=== PATIENT | male | born 1950 | race Caucasian/White ===

== ENCOUNTER → 2018-08-12 | Outpatient (CLI) | payer MEDICARE, OTHER ==
--- NOTE | 2018-08-12 12:31 | RADIOLOGY REPORT (SQ) ---
EXAM DESCRIPTION: SACROILIAC JOINTS COMPLETED DATE/TIME: 08/12/2018 11:25 am REASON FOR STUDY: MULTIFACOTIRAL LOW BACK PAIN M67.431 GANGLION, RIGHT WRIST COMPARISON: Lumbar spine films same date NUMBER OF VIEWS: Three views. TECHNIQUE: AP and oblique views of the sacroiliac joints. LIMITATIONS: None. FINDINGS: MINERALIZATION: Normal. BONES: No acute fracture or dislocation. No worrisome bone lesions. No significant osteophytes. JOINTS: The sacroiliac joints are patent. No unusual widening, sclerosis, or fusion. SOFT TISSUES: No soft tissue swelling. No radio-opaque foreign body. OTHER: Advanced degenerative disc change lower lumbar spine at L3-4, L4-5, and L5-S1. IMPRESSION: SI joints unremarkable. Degenerative disc changes lower lumbar spine TECHNICAL DOCUMENTATION: JOB ID: [id number] [employer]- All Rights Reserved Reading location - IP/workstation name: [email or web address]
--- NOTE | 2018-08-12 14:07 | RADIOLOGY REPORT (SQ) ---
EXAM DESCRIPTION: L SPINE WHOLE COMPLETED DATE/TIME: 08/12/2018 11:25 am REASON FOR STUDY: MULTIFACOTIRAL LOW BACK PAIN M67.431 GANGLION, RIGHT WRIST COMPARISON: None. NUMBER OF VIEWS: Five views including obliques. TECHNIQUE: AP, lateral, oblique, and sacral radiographic images acquired of the lumbar spine. LIMITATIONS: None. FINDINGS: MINERALIZATION: Normal. SEGMENTATION: Normal. No transitional anatomy. ALIGNMENT: Degenerative convex leftward lumbar curvature VERTEBRAE: Maintained height. No fracture or worrisome bone lesion. DISCS: High-grade disc space loss of height with vertebral body endplate sclerosis and bony spurring. Disc space vacuum phenomenon from L1-2 through L5-S1 POSTERIOR ELEMENTS: Pedicles and facets are intact. No pars defect or posterior arch defects. Diffu se facet arthropathy HARDWARE: None in the spine. PARASPINAL SOFT TISSUES: Normal. PELVIS: Not included in the field of view OTHER: No other significant finding. IMPRESSION: Diffuse degenerative changes lumbar spine TECHNICAL DOCUMENTATION: JOB ID: [id number] [employer]- All Rights Reserved Reading location - IP/workstation name: [email or web address]
--- NOTE | 2018-08-12 15:12 | RADIOLOGY REPORT (SQ) ---
EXAM DESCRIPTION: U/S EXTREMITY NONVASCULAR LTD COMPLETED DATE/TIME: 08/12/2018 11:07 am REASON FOR STUDY: GANGLION CYST OF R WRIST M67.431 GANGLION, RIGHT WRIST COMPARISON: None. TECHNIQUE: Sonographic imaging is performed on the right wrist. LIMITATIONS: None. FINDINGS: Sonographic images show a complex cyst on the right wrist measuring 10 mm. There is no si gnificant increased vascularity. IMPRESSION: A ganglion cyst on the right wrist. TECHNICAL DOCUMENTATION: JOB ID: [id number] [employer]- All Rights Reserved Reading location - IP/workstation name: [email or web address]
== END ==
LOC: RAD 09:54
PROVIDERS: ATTEND Family Medicine
DX: M67.431 Ganglion, right wrist (principal); M54.5 Low back pain; M47.896 Other spondylosis, lumbar region
CPT/HCPCS: 72110; 72200; 76882

== ENCOUNTER → 2018-08-27 | Outpatient (CLI) | payer MEDICARE, OTHER ==
[2018-08-27 12:43] LABS: ABSOLUTE EOSINOPHILS # (AUTO) 0.1 10^3/uL (0.0-0.6); ABSOLUTE LYMPHOCYTES (AUTO) 1.2 10^3/uL (0.5-4.7); ABSOLUTE MONOCYTES (AUTO) 0.5 10^3/uL (0.1-1.4); ABSOLUTE NEUT (AUTO) 3.6 10^3/uL (1.7-8.2); BASOPHILS % (AUTO) 0.4 % (0-2); EOSINOPHILS % (AUTO) 2.4 % (0-6); HEMATOCRIT 44.9 % (37.9-51.0); HEMOGLOBIN 15.1 g/dL (13.5-17.0); LYMPHOCYTES % (AUTO) 21.3 % (13-45); MEAN CORPUSCULAR HEMOGLOBIN 31.2 pg (27.0-33.4); MEAN CORPUSCULAR HGB CONC 33.7 g/dL (32.0-36.0); MEAN CORPUSCULAR VOLUME 93 fl (80-97); MONOCYTES % (AUTO) 9.4 % (3-13); PLATELET COUNT 140 10^3/uL (150-450); RED BLOOD COUNT 4.85 10^6/uL (4.35-5.55); SEGMENTED NEUTROPHILS % (AUTO) 66.5 % (42-78); TOTAL CELLS COUNTED % (AUTO) 100 %; WHITE BLOOD COUNT 5.5 10^3/uL (4.0-10.5)
[2018-08-27 13:08] LABS: ALANINE AMINOTRANSFERASE 28 U/L (21-72); ALBUMIN 3.6 g/dL (3.5-5.0); ALKALINE PHOSPHATASE 72 U/L (38-126); ANION GAP 6 (5-19); ASPARTATE AMINO TRANSFERASE 35 U/L (17-59); BILIRUBIN,DIRECT 0.4 mg/dL (0.0-0.4); BILIRUBIN,TOTAL 0.8 mg/dL (0.2-1.3); BLOOD UREA NITROGEN 14 mg/dL (7-20); CALCIUM 8.8 mg/dL (8.4-10.2); CARBON DIOXIDE 33 mmol/L (22-30); CHLORIDE 102 mmol/L (98-107); CHOLESTEROL 133.85 mg/dL (0-200); GLUCOSE 87 mg/dL (75-110); POTASSIUM 5.2 mmol/L (3.6-5.0); SODIUM 140.8 mmol/L (137-145); TOTAL PROTEIN 6.5 g/dL (6.3-8.2); TRIGLYCERIDES 80 mg/dL (<150)
[2018-08-27 13:20] LABS: DIRECT LDL 85 mg/dL (<100)
== END ==
LOC: OD 11:19
PROVIDERS: ATTEND Family Medicine Geriatric Medicine
DX: E78.5 Hyperlipidemia, unspecified (principal); J44.9 Chronic obstructive pulmonary disease, unspecified; D50.9 Iron deficiency anemia, unspecified; Z79.899 Other long term (current) drug therapy
CPT/HCPCS: 36415; 80053; 80061; 84443; 85025

== ENCOUNTER → 2018-09-02 | Outpatient (CLI) | payer MEDICARE, OTHER ==
[2018-09-02 14:32] LABS: ABSOLUTE EOSINOPHILS # (AUTO) 0.2 10^3/uL (0.0-0.6); ABSOLUTE LYMPHOCYTES (AUTO) 1.6 10^3/uL (0.5-4.7); ABSOLUTE MONOCYTES (AUTO) 0.6 10^3/uL (0.1-1.4); ABSOLUTE NEUT (AUTO) 4.2 10^3/uL (1.7-8.2); BASOPHILS % (AUTO) 0.5 % (0-2); EOSINOPHILS % (AUTO) 2.7 % (0-6); HEMATOCRIT 42.4 % (37.9-51.0); HEMOGLOBIN 14.5 g/dL (13.5-17.0); LYMPHOCYTES % (AUTO) 24.4 % (13-45); MEAN CORPUSCULAR HEMOGLOBIN 31.5 pg (27.0-33.4); MEAN CORPUSCULAR HGB CONC 34.1 g/dL (32.0-36.0); MEAN CORPUSCULAR VOLUME 92 fl (80-97); MONOCYTES % (AUTO) 9.3 % (3-13); PLATELET COUNT 157 10^3/uL (150-450); RED BLOOD COUNT 4.59 10^6/uL (4.35-5.55); RED CELL DISTRIBUTION WIDTH 13.5 % (11.5-14.0); SEGMENTED NEUTROPHILS % (AUTO) 63.1 % (42-78); TOTAL CELLS COUNTED % (AUTO) 100 %; WHITE BLOOD COUNT 6.7 10^3/uL (4.0-10.5)
== END ==
LOC: OD 13:10
PROVIDERS: ATTEND Family Medicine Geriatric Medicine
DX: E78.5 Hyperlipidemia, unspecified (principal); D69.6 Thrombocytopenia, unspecified; E87.5 Hyperkalemia; R79.89 Other specified abnormal findings of blood chemistry
CPT/HCPCS: 36415; 84132; 84443; 85025

== ENCOUNTER → 2018-11-12 | Outpatient (CLI) | payer MEDICARE, OTHER ==
--- NOTE | 2018-11-12 15:45 | RADIOLOGY REPORT (SQ) ---
EXAM DESCRIPTION: U/S NON-OB PELVIS LTD W/O DOP COMPLETED DATE/TIME: 11/12/2018 3:36 pm REASON FOR STUDY: RIGHT LOWER QUADRANT PAIN, RIGHT GROIN PAIN R10.31 RIGHT LOWER QUADRANT PAIN COMPARISON: None. TECHNIQUE: Dynamic and static grayscale images acquired of the right hand left inguinal region trans abdominal approach and recorded on PACS. Additional selected color Doppler and spectral images record ed. LIMITATIONS: None. FINDINGS: Ultrasound of the right hand left inguinal region, including grayscale and cine loop image s saved to pac's. No right or left inguinal hernia is identified. No adenopathy. No inguinal ash s. IMPRESSION: No right or left inguinal hernia is identified at ultrasound TECHNICAL DOCUMENTATION: JOB ID: [id number] [employer]- All Rights Reserved Reading location - IP/workstation name: [facility] [place]
== END ==
LOC: RAD 13:52
PROVIDERS: ATTEND Family Medicine
DX: R10.31 Right lower quadrant pain (principal)
CPT/HCPCS: 76857

== ENCOUNTER 2018-12-16 11:47 | Observation (INO) | payer MEDICARE, OTHER ==
[2018-12-16 12:18] LABS: ABSOLUTE EOSINOPHILS # (AUTO) 0.1 10^3/uL (0.0-0.6); ABSOLUTE LYMPHOCYTES (AUTO) 2.1 10^3/uL (0.5-4.7); ABSOLUTE MONOCYTES (AUTO) 0.6 10^3/uL (0.1-1.4); ABSOLUTE NEUT (AUTO) 3.9 10^3/uL (1.7-8.2); BASOPHILS % (AUTO) 0.5 % (0-2); EOSINOPHILS % (AUTO) 1.8 % (0-6); HEMATOCRIT 42.3 % (37.9-51.0); HEMOGLOBIN 14.1 g/dL (13.5-17.0); LYMPHOCYTES % (AUTO) 30.7 % (13-45); MEAN CORPUSCULAR HEMOGLOBIN 30.5 pg (27.0-33.4); MEAN CORPUSCULAR HGB CONC 33.3 g/dL (32.0-36.0); MEAN CORPUSCULAR VOLUME 92 fl (80-97); MONOCYTES % (AUTO) 8.6 % (3-13); PLATELET COUNT 168 10^3/uL (150-450); RED BLOOD COUNT 4.62 10^6/uL (4.35-5.55); RED CELL DISTRIBUTION WIDTH 13.2 % (11.5-14.0); SEGMENTED NEUTROPHILS % (AUTO) 58.4 % (42-78); TOTAL CELLS COUNTED % (AUTO) 100 %; WHITE BLOOD COUNT 6.7 10^3/uL (4.0-10.5)
[2018-12-16 12:40] LABS: ANION GAP 6 (5-19); BLOOD UREA NITROGEN 12 mg/dL (7-20); CARBON DIOXIDE 31 mmol/L (22-30); CHLORIDE 105 mmol/L (98-107); GLUCOSE 92 mg/dL (75-110); POTASSIUM 5.1 mmol/L (3.6-5.0); SODIUM 142.2 mmol/L (137-145)
--- NOTE | 2018-12-16 13:05 | ER Document Report ---
ED Cardiac - General Chief Complaint: Irregular Pulse Stated Complaint: ELEVATED HEART RATE Time Seen by Provider: 12/16/18 12:07 Primary Care Provider: STEVEN SO MD [Primary Care Provider] - Follow up as needed TRAVEL OUTSIDE OF THE [place] IN LAST 30 DAYS: No - HPI Notes: Patient is a 68-year-old male that presents to the emergency department for chief complaint of tachycardia. Patient presents from GI physician office Dr. Quintanilla for tachycardia. He was in the office for EGD and was found to have a heart rate in the 140s. Patient denies any symptoms of chest pain, palpitations, near syncope or shortness of breath. He denies history of tachycardia in the past. He was being seen for EGD to further investigate and abdominal discomfort he has been having for the last few weeks. He states he recently had a colonoscopy that was unremarkable and the EGD is a follow-up. He does have a history of a sending aortic aneurysm with repair. He states that occurred about 1 year ago and has not had any issues with it since. He denies any chest pain currently. He does state he has a pain in his low back which is chronic for him. He usually takes [place] which she has not had yet today. Patient states he is in the process of seeing an honey processor to be worked up for hyperthyroidism. He did have an ultrasound of his thyroid performed which showed enlargement with cysts. He denies being on any medication for hyperthyroidism. Patient currently states he feels normal and would like to go home. Past Medical History: Aortic aneurysm Past Surgical History: Aortic aneurysm repair Social History: Denies drugs alcohol and tobacco Family History: Reviewed and noncontributory for presenting illness Allergies: Reviewed, see documented allergy list. REVIEW OF SYSTEMS: CONSTITUTIONAL : No fever No chills No diaphoresis No recent illness EENT: No vision changes No congestion No sore throat CARDIOVASCULAR: No chest pain No palpitations RESPIRATORY: No shortness of breath No cough No difficulty breathing GASTROINTESTINAL: No abdominal pain No nausea No vomiting No diarrhea GENITOURINARY: No dysuria No hematuria No difficulty urinating MUSCULOSKELETAL: No back pain No leg pain No arm pain SKIN: No rashes No lesions LYMPHATIC: No swollen, enlarged glands. NEUROLOGICAL: No lightheadedness No headache No weakness No paresthesias PSYCHIATRIC: No anxiety No depression PHYSICAL EXAMINATION: Vital signs reviewed, nursing noted reviewed. GENERAL: Well-appearing, well-nourished and in no acute distress. HEAD: Atraumatic, normocephalic. EYES: Eyes appear normal, extraocular movements intact, sclera anicteric, conjunctiva are normal. ENT: nares patent, oropharynx clear without exudates. Moist mucous membranes. NECK: Normal range of motion, supple without lymphadenopathy LUNGS: Breath sounds clear to auscultation bilaterally and equal. No wheezes rales or rhonchi. HEART: Tachycardic rate and regular rhythm without murmurs, +2/4 bilateral radial and DP pulses ABDOMEN: Soft, nontender, normoactive bowel sounds. No rebound, guarding, or rigidity. No masses appreciated. EXTREMITIES: Normal capillary refill, nontender, good range of motion, no pitting or edema. NEUROLOGICAL: No focal neurological deficits. Moves all extremities spontaneously Motor and sensory grossly intact on exam. PSYCH: Normal mood, normal affect. SKIN: Warm, Dry, normal turgor, no rashes or lesions noted on exposed skin - Related Data Allergies/Adverse Reactions: No Known Allergies Allergy (Verified 12/16/18 13:34) Past Medical History - Social History Smoking Status: Former Smoker Frequency of alcohol use: None Drug Abuse: None Family History: Reviewed & Not Pertinent Patient has suicidal ideation: No Patient has homicidal ideation: No - Past Medical History Cardiac Medical History: Reports: Hx Hypercholesterolemia, Hx Hypertension Pulmonary Medical History: Reports: Hx COPD Renal/ Medical History: Denies: Hx Peritoneal Dialysis Past Surgical History: Reports: Hx Cardiac Surgery - aortic aneurysm surgery 2018, Hx Orthopedic Surgery - neck Course - Re-evaluation Re-evalutation: 12/16/18 13:03 Vitals reviewed. Nursing notes reviewed. Patient placed on telemetry monitoring. He is tachycardic with heart rate in the 130s. EKG shows a left bundle branch block and a sinus tachycardia. Patient's blood pressure currently stable at 119/100. His initial workup is unremarkable. Given the new information of his thyroid history TSH, free T4 and free T3 will be added. Patient be given morphine for his back pain since he has missed his home [place]'s. Laboratory 12/16/18 12/16/18 12/16/18 12:09 12:09 12:09 WBC 6.7 RBC 4.62 Hgb 14.1 Hct 42.3 MCV 92 MCH 30.5 MCHC 33.3 RDW 13.2 Plt Count 168 Seg Neutrophils % 58.4 Lymphocytes % 30.7 Monocytes % 8.6 Eosinophils % 1.8 Basophils % 0.5 Absolute Neutrophils 3.9 Absolute Lymphocytes 2.1 Absolute Monocytes 0.6 Absolute Eosinophils 0.1 Absolute Basophils 0.0 Sodium 142.2 Potassium 5.1 H Chloride 105 Carbon Dioxide 31 H Anion Gap 6 BUN 12 Creatinine 0.75 Est GFR ( Amer) > 60 Est GFR (Non-Af Amer) > 60 Glucose 92 Calcium 9.0 Troponin I 0.015 12/16/18 14:54 Patient's care was discussed with Dr. Homero Carbone, his honey processor, who recommended beta-blockade for rate control but did not feel patient would re quire methimazole as long as his free T4 was less than 3. Patient's free T4 today is 2.05. His TSH is undetectable suggesting he is hyperthyroid. He does have elevated free T3. Despite receiving propranolol for rate control patient has continued to be tachycardic with a heart rate of 140. His blood pressure has remained stable and is currently 117/86. Patient will be admitted to the hospital for telemetry monitoring further heart rate control. His care was discussed with Dr. Torres who accepted admission. Patient in agreement with plan of care. Chest X-Ray 12/16/18 12:07 IMPRESSION: Cardiomegaly without acute abnormality of the lungs in AP projection. Laboratory 12/16/18 12/16/18 12/16/18 12:09 12:09 12:09 WBC 6.7 RBC 4.62 Hgb 14.1 Hct 42.3 MCV 92 MCH 30.5 MCHC 33.3 RDW 13.2 Plt Count 168 Seg Neutrophils % 58.4 Lymphocytes % 30.7 Monocytes % 8.6 Eosinophils % 1.8 Basophils % 0.5 Absolute Neutrophils 3.9 Absolute Lymphocytes 2.1 Absolute Monocytes 0.6 Absolute Eosinophils 0.1 Absolute Basophils 0.0 Sodium 142.2 Potassium 5.1 H Chloride 105 Carbon Dioxide 31 H Anion Gap 6 BUN 12 Creatinine 0.75 Est GFR ( Amer) > 60 Est GFR (Non-Af Amer) > 60 Glucose 92 Calcium 9.0 Troponin I 0.015 TSH Free T4 Free T3 pg/mL 12/16/18 12:09 WBC RBC Hgb Hct MCV MCH MCHC RDW Plt Count Seg Neutrophils % Lymphocytes % Monocytes % Eosinophils % Basophils % Absolute Neutrophils Absolute Lymphocytes Absolute Monocytes Absolute Eosinophils Absolute Basophils Sodium Potassium Chloride Carbon Dioxide Anion Gap BUN Creatinine Est GFR ( Amer) Est GFR (Non-Af Amer) Glucose Calcium Troponin I TSH < 0.01 L Free T4 2.05 Free T3 pg/mL 6.71 H - Laboratory Result Diagrams: 12/16/18 12:09 12/16/18 12:09 Laboratory results interpreted by me: 12/16/18 12/16/18 12:09 12:09 Potassium 5.1 H Carbon Dioxide 31 H TSH < 0.01 L Free T3 pg/mL 6.71 H - EKG Interpretation by Me Additional EKG results interpreted by me: 12/16/18 13:04 Interpreted by myself 1150: Sinus tachycardia, rate 139, normal axis, left bundle branch block Discharge - Discharge Clinical Impression: Hyperthyroidism, Tachycardia Condition: Stable Disposition: ADMITTED INPATIENT Admitting Provider: Hospitalist Unit Admitted: Telemetry Referrals: STEVEN SO MD [Primary Care Provider] - Follow up as needed
--- NOTE | 2018-12-16 13:30 | RADIOLOGY REPORT (SQ) ---
EXAM DESCRIPTION: CHEST SINGLE VIEW COMPLETED DATE/TIME: 12/16/2018 12:34 pm REASON FOR STUDY: palpitations COMPARISON: None. EXAM PARAMETERS: NUMBER OF VIEWS: One view. TECHNIQUE: Single frontal radiographic view of the chest acquired. RADIATION DOSE: NA LIMITATIONS: None. FINDINGS: LUNGS AND PLEURA: No opacities, masses or pneumothorax. No pleural effusion. MEDIASTINUM AND HILAR STRUCTURES: No masses. Contour normal. HEART AND VASCULAR STRUCTURES: Cardiomegaly status post median sternotomy. BONES: No acute findings. HARDWARE: None in the chest. OTHER: No other significant finding. IMPRESSION: Cardiomegaly without acute abnormality of the lungs in AP projection. TECHNICAL DOCUMENTATION: JOB ID: [id number] [employer]- All Rights Reserved Reading location - IP/workstation name: [email or web address]
[2018-12-16] MEDS ORDERED: PROPRANOLOL HCL 20 MG TABLET PO ONE (13:33)
[2018-12-16 13:52] LABS: FREE T3 6.71 pg/mL (2.77-5.27)
[2018-12-16 13:53] LABS: FREE T4 (FREE THYROXINE) 2.05 ng/dL (0.78-2.19)
[2018-12-16 14:08] LABS: THYROID STIMULATING HORMONE < 0.01 uIU/mL (0.47-4.68)
[2018-12-16] MEDS ORDERED: MORPHINE SULFATE 10 MG/ML INJ IV ONE (14:23)
[2018-12-16] MEDS ORDERED: ONDANSETRON HCL INJ/PF 4 MG/2 ML SDV IV PRN (15:42)
[2018-12-16] MEDS ORDERED: ACETAMINOPHEN 325 MG TABLET PO PRN (15:42)
[2018-12-16] MEDS ORDERED: METOPROLOL TARTRATE PF/INJ 5 MG/5 ML SDV IV PRN (15:45)
--- NOTE | 2018-12-16 16:00 | PDOC PROGRESS REPORT ---
Subjective Progress Note for:: 12/16/18 Subjective:: 68-year-old male with history of hyperthyroidism, hypertension, hyperlipidemia, spinal stenosis, osteoarthritis went to see Dr. Quintanilla for colonoscopy found to have a heart rate of 140 he was referred to the ER for further evaluation. Patient was asymptomatic. The ER physician gave her propranolol and without any success medical consult was called for admission. Went to talk to the patient in the ER room #17 patient is asymptomatic. able To communicate very well. Patient agreed to stay in the hospital overnight. He is used to take metoprolol 25 mg twice a day at home because of the colonoscopy procedure he missed a dose for 1 day. No complaints of headaches no dizziness no falls. Denies any nausea or chest pains vomiting's or diarrhea. Reason For Visit: HYPERTHYROIDISM,TACHYCARDIA Physical Exam Vital Signs: Intake & Output 12/15/18 12/16/18 12/17/18 06:59 06:59 06:59 Weight 102.2 kg General appearance: PRESENT: no acute distress Head exam: PRESENT: atraumatic Eye exam: PRESENT: PERRLA Mouth exam: PRESENT: dry mucosa Neck exam: ABSENT: carotid bruit, JVD, lymphadenopathy, thyromegaly Respiratory exam: PRESENT: clear to auscultation kasi. ABSENT: rales, rhonchi, wheezes Cardiovascular exam: PRESENT: tachycardia GI/Abdominal exam: PRESENT: normal bowel sounds, soft. ABSENT: distended, guarding, mass, organolmegaly, rebound, tenderness Extremities exam: PRESENT: full ROM. ABSENT: calf tenderness, clubbing, pedal edema Neurological exam: PRESENT: alert, awake, oriented to person, oriented to place, oriented to time, oriented to situation, CN II-XII grossly intact. ABSENT: motor sensory deficit Psychiatric exam: PRESENT: appropriate affect, normal mood. ABSENT: homicidal ideation, suicidal ideation Results Laboratory Results: 12/16/18 12:09 12/16/18 12:09 12/16/18 12/16/18 12/16/18 12:09 12: 12:09 WBC 6.7 RBC 4.62 Hgb 14.1 Hct 42.3 MCV 92 MCH 30.5 MCHC 33.3 RDW 13.2 Plt Count 168 Seg Neutrophils % 58.4 Lymphocytes % 30.7 Monocytes % 8.6 Eosinophils % 1.8 Basophils % 0.5 Absolute Neutrophils 3.9 Absolute Lymphocytes 2.1 Absolute Monocytes 0.6 Absolute Eosinophils 0.1 Absolute Basophils 0.0 Sodium 142.2 Potassium 5.1 H Chloride 105 Carbon Dioxide 31 H Anion Gap 6 BUN 12 Creatinine 0.75 Est GFR ( Amer) > 60 Est GFR (Non-Af Amer) > 60 Glucose 92 Calcium 9.0 TSH < 0.01 L Free T4 2.05 Free T3 pg/mL 6.71 H 12/16/18 12:09 Troponin I 0.015 Impressions: Chest X-Ray 12/16/18 12:07 IMPRESSION: Cardiomegaly without acute abnormality of the lungs in AP projection. Assessment & Plan - Diagnosis (1) Hyperthyroidism Is this a current diagnosis for this admission?: Yes Plan: 12/16/2018-patient has a history of hypothyroidism which was recently diagnosed 100 and he is started following up with her trade embalmer in the [facility] taking metoprolol 25 mg p.o. twice a day at home. According to the patient ultrasound of the thyroid gland was done deferred to multiple cysts. TSH is less than 0.01. Free T3 is 6.75 and a free T4 is 2.05. The ER physician spoke to the trade embalmer's recommendation is not to give methimazole because a free T3 of 4/10 3. The plan is to admit him to the hospital for observation to control the heart rate. I started him on Lopressor 30 mg IV every 6 as needed to keep the heart rate less than 110 and also started him on metoprolol 100 mg p.o. twice daily. Echocardiogram was requested to rule out any tachycardia induced cardiomyopathy. (2) Tachycardia Is this a current diagnosis for this admission?: Yes Plan: 12/16/2018 tachycardia is most likely secondary to hyperthyroidism. Heart rate is in the 140s not responded to propranolol 20 mg that was given in the ER. We are going to start him on Lopressor 10 mg IV every 6 as needed keep heart rate less than 110 and was also placed on metoprolol 100 mg p.o. daily scheduled medication. As per the trade embalmer recommendations not to be placed on methimazole . (3) COPD (chronic obstructive pulmonary disease) Is this a current diagnosis for this admission?: Yes Plan: 12/16/2018 patient is given history of COPD secondary to 40 years of smoking. He quit smoking last September. Patient was encouraged to continue to not to smoke. Patient is not on home oxygen. (4) HTN (hypertension) Is this a current diagnosis for this admission?: Yes Plan: 12/16/2018 patient is given the history of hypertension at home. Patient recent ER is 130/70. (5) Spinal stenosis Is this a current diagnosis for this admission?: Yes Plan: 12/16/2018 patient is given the history of spinal stenosis he takes [place] every 6 as needed at home and also take Tylenol with codeine at home plan is to resume those medications while he was in the hospital. (6) Neuropathy Is this a current diagnosis for this admission?: Yes Plan: 12/16/2018 patient given history of neuropathy in both hands and feet. Is taking gabapentin at home plan is to resume those medications. - Time Time Spent with patient: 15-24 minutes Medications reviewed and adjusted accordingly: Yes Anticipated discharge: Home
[2018-12-16] MEDS: DOCUSATE SODIUM 100 MG CAPSULE PO SCH (18:59)
[2018-12-16] MEDS: ENOXAPARIN SODIUM INJ 40 MG/0.4 ML DISP.SYRIN SUBCUT SCH (20:11)
--- NOTE | 2018-12-16 22:44 | XCELERA REPORT ---
[address] [address] Transthoracic Echocardiogram Report Name: RADHA CHOW Age: 68 yrs Gender: Male : 1950 Patient Status: Inpatient Patient Location: [place] [address]^A Study Date: 12/16/2018 08:01 PM Height: 74 in Weight: 225 lb BSA: 2.3 m2 Procedure: A two-dimensional transthoracic echocardiogram with color flow and Doppler was performed. The study was technically difficult with many images being suboptimal in quality. Reason For Study: tachycardia History: TACHYCARDIA. Ordering Physician: GEOFFREY SHERIFF Performed By: Yahaira Javier Interpretation Summary The left ventricle is normal in size. There is normal left ventricular wall thickness. LV EF is > thaan 55% The left ventricular ejection fraction is within normal limits. Doppler measurements suggest impaired left ventricular relaxation, which is associated with grade I/IV or mild diastolic dysfunction The left ventricular wall motion is normal. There is no thrombus. The right ventricle is not well visualized secondary to technical limitations The left atrial size is normal. There is no evidence of mitral valve prolapse. There is no vegetation seen on the mitral valve. There is no mitral valve stenosis. There is a trace to mild amount of mitral regurgitation There is no aortic valvular vegetation. There is no aortic valve stenosis There is aortic sclerosis without aortic stenosis. There is no LVOT obstruction. No aortic regurgitation is present. There is no tricuspid stenosis. There is a trace amount of tricuspid regurgitation Right ventricular systolic pressure is normal. RVSP is 13 to 18 mm of Hg , with RA mean of 5 to 10. There is no pulmonic valvular stenosis. There is a trace amount of pulmonic regurgitation The aortic root is normal size. There is no pericardial effusion. MMode/2D Measurements & Calculations RVDd: 3.0 cm LVIDd: 5.1 cm FS: 30.1 % Ao root diam: 3.6 cm IVSd: 0.87 cm LVIDs: 3.6 cm EDV(Teich): 125.4 ml Ao root area: 10.0 cm2 LVPWd: 1.1 cm ESV(Teich): 54.0 ml LA dimension: 3.5 cm EF(Teich): 57.0 % Doppler Measurements & Calculations MV E max devan: MV P1/2t max devan: Ao V2 max: LV V1 max P.1 cm/sec 135.7 cm/sec 121.6 cm/sec 4.3 mmHg MV P1/2t: 76.5 msec Ao max P.9 mmHgLV V1 max: MVA(P1/2t): 2.9 cm2 104.2 cm/sec MV dec slope: 519.4 cm/sec2 MV dec time: 0.23 sec TV V2 max: PA V2 max: PI end-d devan: TR max devan: 96.4 cm/sec 99.0 cm/sec 109.5 cm/sec 141.2 cm/sec TV max P.7 mmHgPA max P.9 mmHg TR max P.0 mmHg MV P1/2t-pr_phl: 76.5 msec Left Ventricle The left ventricle is normal in size. There is normal left ventricular wall thickness. LV EF is > thaan 55%. The left ventricular ejection fraction is within normal limits. Doppler measurements suggest impaired left ventricular relaxation, which is associated with grade I/IV or mild diastolic dysfunction. The left ventricular wall motion is normal. There is no thrombus. Right Ventricle The right ventricle is not well visualized secondary to technical limitations. Atria Right atrium not well visualized secondary to technical limitations. The left atrial size is normal. Mitral Valve There is no evidence of mitral valve prolapse. There is no vegetation seen on the mitral valve. There is no mitral valve stenosis. There is a trace to mild amount of mitral regurgitation. Aortic Valve There is no aortic valvular vegetation. There is no aortic valve stenosis. There is aortic sclerosis without aortic stenosis. There is no LVOT obstruction. No aortic regurgitation is present. Tricuspid Valve There is no tricuspid stenosis. There is a trace amount of tricuspid regurgitation. Right ventricular systolic pressure is normal. RVSP is 13 to 18 mm of Hg , with RA mean of 5 to 10. Pulmonic Valve There is no pulmonic valvular stenosis. There is a trace amount of pulmonic regurgitation. Great Vessels The aortic root is normal size. Effusions There is no pericardial effusion. : GEOFFREY SHERIFF > Roma Blackwood
--- NOTE | 2018-12-16 23:08 | EKG REPORT ---
SEVERITY:- ABNORMAL ECG - SINUS RHYTHM FIRST DEGREE AV BLOCK PROBABLE LEFT ATRIAL ABNORMALITY LEFT BUNDLE BRANCH BLOCK : Confirmed by: Tati Ricketts 16-Dec-2018 23:07:50
--- NOTE | 2018-12-16 23:08 | EKG REPORT ---
SEVERITY:- ABNORMAL ECG - SINUS TACHYCARDIA LEFT BUNDLE BRANCH BLOCK : Confirmed by: Tati Ricketts 16-Dec-2018 23:08:06
[2018-12-17] MEDS: OXYCODONE-ACETAMINOPHEN 5-325 MG TABLET PO PRN ×2 (00:07→07:53)
[2018-12-17] MEDS: FAMOTIDINE 20 MG TABLET PO SCH ×2 (00:09→09:56)
[2018-12-17] MEDS: METOPROLOL SUCCINATE 50 MG TAB.SR.24H PO SCH ×2 (00:10→09:40)
[2018-12-17] MEDS: GABAPENTIN 300 MG CAPSULE PO SCH ×2 (00:10→09:41)
[2018-12-17 04:56] LABS: ABSOLUTE EOSINOPHILS # (AUTO) 0.2 10^3/uL (0.0-0.6); ABSOLUTE LYMPHOCYTES (AUTO) 2.4 10^3/uL (0.5-4.7); ABSOLUTE MONOCYTES (AUTO) 0.6 10^3/uL (0.1-1.4); ABSOLUTE NEUT (AUTO) 3.1 10^3/uL (1.7-8.2); BASOPHILS % (AUTO) 0.6 % (0-2); EOSINOPHILS % (AUTO) 2.7 % (0-6); HEMATOCRIT 37.3 % (37.9-51.0); HEMOGLOBIN 12.4 g/dL (13.5-17.0); LYMPHOCYTES % (AUTO) 37.5 % (13-45); MEAN CORPUSCULAR HEMOGLOBIN 30.2 pg (27.0-33.4); MEAN CORPUSCULAR HGB CONC 33.3 g/dL (32.0-36.0); MEAN CORPUSCULAR VOLUME 91 fl (80-97); MONOCYTES % (AUTO) 9.2 % (3-13); PLATELET COUNT 126 10^3/uL (150-450); RED BLOOD COUNT 4.12 10^6/uL (4.35-5.55); RED CELL DISTRIBUTION WIDTH 13.3 % (11.5-14.0); TOTAL CELLS COUNTED % (AUTO) 100 %; WHITE BLOOD COUNT 6.3 10^3/uL (4.0-10.5)
[2018-12-17 05:21] LABS: ALANINE AMINOTRANSFERASE 33 U/L (21-72); ALBUMIN 3.3 g/dL (3.5-5.0); ALKALINE PHOSPHATASE 63 U/L (38-126); ANION GAP 8 (5-19); ASPARTATE AMINO TRANSFERASE 30 U/L (17-59); BILIRUBIN,DIRECT 0.2 mg/dL (0.0-0.4); BILIRUBIN,TOTAL 0.6 mg/dL (0.2-1.3); BLOOD UREA NITROGEN 14 mg/dL (7-20); CALCIUM 8.4 mg/dL (8.4-10.2); CARBON DIOXIDE 28 mmol/L (22-30); CHLORIDE 105 mmol/L (98-107); CHOLESTEROL 107.18 mg/dL (0-200); GLUCOSE 96 mg/dL (75-110); POTASSIUM 4.8 mmol/L (3.6-5.0); SODIUM 140.8 mmol/L (137-145); TOTAL PROTEIN 5.5 g/dL (6.3-8.2); TRIGLYCERIDES 69 mg/dL (<150)
[2018-12-17 05:32] LABS: DIRECT LDL 69 mg/dL (<100)
[2018-12-17 05:39] LABS: FREE T3 5.86 pg/mL (2.77-5.27); FREE T4 (FREE THYROXINE) 2.02 ng/dL (0.78-2.19)
[2018-12-17 06:09] LABS: THYROID STIMULATING HORMONE < 0.01 uIU/mL (0.47-4.68)
--- NOTE | 2018-12-17 09:01 | PDOC H&P ---
History of Present Illness Admission Date/PCP: 12/16/18 15:43 STEVEN SO MD Patient complains of: tachycardia History of Present Illness: RADHA CHOW is a 68 year old male with history of hyperthyroidism, hypertension, hyperlipidemia, spinal stenosis, osteoarthritis went to see Dr. Quintanilla for colonoscopy found to have a heart rate of 140 he was referred to the ER for further evaluation. Patient was asymptomatic. The ER physician gave her propranolol and without any success medical consult was called for admission. Went to talk to the patient in the ER room #17 patient is asymptomatic. able To communicate very well. Patient agreed to stay in the hospital overnight. He is used to take metoprolol 25 mg twice a day at home because of the colonoscopy procedure he missed a dose for 1 day. No complaints of headaches no dizziness no falls. Denies any nausea or chest pains vomiting's or diarrhea. Past Medical History Cardiac Medical History: Reports: Hyperlipidema, Hypertension Pulmonary Medical History: Reports: Chronic Obstructive Pulmonary Disease (COPD) Past Surgical History Past Surgical History: Reports: Orthopedic Surgery - neck Social History Smoking Status: Former Smoker Number of Years Smokin Last Time Smoked: Sep 2018 Frequency of Alcohol Use: None Hx Recreational Drug Use: No Hx Prescription Drug Abuse: No - Advance Directive Resuscitation Status: Full Code Family History Family History: Reviewed & Not Pertinent Parental Family History Reviewed: Yes Children Family History Reviewed: Yes Sibling(s) Family History Reviewed.: Yes Medication/Allergy Home Medications: Acetaminophen with Codeine [Tylenol with Codeine #3 Tablet] 1 tab PO Q8HP PRN 12/16/18 Albuterol Sulfate [Proair HFA Inhalation Aerosol 8.5 gm MDI] 2 puff IH Q6HP PRN 12/16/18 Aspirin [Ecotrin 81 mg EC Tablet] 81 mg PO DAILY 12/16/18 Buprenorphine [Butrans] 10 mcg TD TU@1000 12/16/18 Cyanocobalamin (Vitamin B-12) [Vitamin B-12 1000 mcg Tablet] 1,000 mcg PO DAILY 12/16/18 Ferrous Sulfate [Feosol 325 mg Tablet] 325 mg PO DAILY 12/16/18 Fluticasone/Umeclidin/Vilanter [Trelegy 100-62.5-25 Mcg Ellipta 14 Dose/Dpi] 1 puff IH DAILY 12/16/18 Gabapentin [Neurontin] 800 mg PO Q6 12/16/18 Guaifenesin [Mucinex] 1,200 mg PO BIDP PRN 12/16/18 Hydrocodone Bit/Acetaminophen [Hydrocodon-Acetaminophen 5-325] 1 tab PO Q6 12/16/18 Melatonin [Melatonin 5 mg Tablet] 5 mg PO HSP PRN 12/16/18 Metoprolol Tartrate [Lopressor 25 mg Tablet] 25 mg PO Q12 12/16/18 Multivitamin [Tab-A-Jake (Multiple Vitamin) Tablet] 1 tab PO DAILY 12/16/18 [place]-3/Dha/Epa/Fish Oil [Fish Oil 500 mg Softgel] 1 cap PO DAILY 12/16/18 Tumeric 500mg 500 mg PO DAILY 12/16/18 Allergies/Adverse Reactions: No Known Allergies Allergy (Verified 12/16/18 13:34) Review of Systems Constitutional: ABSENT: fever(s), headache(s) Eyes: ABSENT: visual disturbances Ears: ABSENT: hearing changes Nose, Mouth, and Throat: ABSENT: sore throat Cardiovascular: PRESENT: palpitations. ABSENT: edema, orthropnea Gastrointestinal: ABSENT: abdominal pain, constipation, diarrhea, hematemesis, hematochezia, nausea, vomiting Neurological: ABSENT: abnormal gait, abnormal speech, confusion, dizziness, focal weakness, syncope Psychiatric: ABSENT: anxiety, depression, homidical ideation, suicidal ideation Physical Exam Vital Signs: Temp Pulse Resp BP Pulse Ox 97.5 F 82 20 141/72 H 93 12/17/18 08:18 12/17/18 08:18 12/17/18 08:18 12/17/18 08:18 12/17/18 08:18 Intake & Output 12/16/18 12/17/18 12/18/18 06:59 06:59 06:59 Weight 95.9 kg General appearance: PRESENT: no acute distress Head exam: PRESENT: atraumatic Eye exam: PRESENT: PERRLA Ear exam: PRESENT: normal external ear exam Teeth exam: PRESENT: poor dentation Neck exam: ABSENT: carotid bruit, JVD, lymphadenopathy, thyromegaly Respiratory exam: PRESENT: decreased breath sounds Cardiovascular exam: PRESENT: tachycardia GI/Abdominal exam: PRESENT: normal bowel sounds, soft. ABSENT: distended, guarding, mass, organolmegaly, rebound, tenderness Neurological exam: PRESENT: alert, awake, oriented to person, oriented to place, oriented to time, oriented to situation, CN II-XII grossly intact. ABSENT: motor sensory deficit Psychiatric exam: PRESENT: appropriate affect, normal mood. ABSENT: homicidal ideation, suicidal ideation Results Laboratory Results: 12/17/18 03:49 12/17/18 03:49 12/16/18 12/16/18 12/16/18 12:09 12:09 12:09 WBC 6.7 RBC 4.62 Hgb 14.1 Hct 42.3 MCV 92 MCH 30.5 MCHC 33.3 RDW 13.2 Plt Count 168 Seg Neutrophils % 58.4 Lymphocytes % 30.7 Monocytes % 8.6 Eosinophils % 1.8 Basophils % 0.5 Absolute Neutrophils 3.9 Absolute Lymphocytes 2.1 Absolute Monocytes 0.6 Absolute Eosinophils 0.1 Absolute Basophils 0.0 Sodium 142.2 Potassium 5.1 H Chloride 105 Carbon Dioxide 31 H Anion Gap 6 BUN 12 Creatinine 0.75 Est GFR ( Amer) > 60 Est GFR (Non-Af Amer) > 60 Glucose 92 Calcium 9.0 Magnesium Total Bilirubin AST ALT Alkaline Phosphatase Total Protein Albumin Triglycerides Cholesterol LDL Cholesterol Direct VLDL Cholesterol HDL Cholesterol TSH < 0.01 L Free T4 2.05 Free T3 pg/mL 6.71 H 12/17/18 12/17/18 12/17/18 03:49 03:49 03:49 WBC 6.3 RBC 4.12 L Hgb 12.4 L Hct 37.3 L MCV 91 MCH 30.2 MCHC 33.3 RDW 13.3 Plt Count 126 L Seg Neutrophils % 50.0 Lymphocytes % 37.5 Monocytes % 9.2 Eosinophils % 2.7 Basophils % 0.6 Absolute Neutrophils 3.1 Absolute Lymphocytes 2.4 Absolute Monocytes 0.6 Absolute Eosinophils 0.2 Absolute Basophils 0.0 Sodium 140.8 Potassium 4.8 Chloride 105 Carbon Dioxide 28 Anion Gap 8 BUN 14 Creatinine 0.73 Est GFR ( Amer) > 60 Est GFR (Non-Af Amer) > 60 Glucose 96 Calcium 8.4 Magnesium 2.0 Total Bilirubin 0.6 AST 30 ALT 33 Alkaline Phosphatase 63 Total Protein 5.5 L Albumin 3.3 L Triglycerides 69 Cholesterol 107.18 LDL Cholesterol Direct 69 VLDL Cholesterol 14.0 HDL Cholesterol 36 L TSH < 0.01 L Free T4 2.02 Free T3 pg/mL 5.86 H 0212/16/18 12/16/18 12:09 16:20 16:20 Creatine Kinase 190 H CK-MB (CK-2) 4.43 Troponin I 0.015 NT-Pro-B Natriuret Pep 12/16/18 12/16/18 12/17/18 21:58 21:58 03:49 Creatine Kinase 160 165 CK-MB (CK-2) 3.66 Troponin I NT-Pro-B Natriuret Pep 12/17/18 12/17/18 03:49 03:49 Creatine Kinase CK-MB (CK-2) 3.50 Troponin I NT-Pro-B Natriuret Pep 2030 H Impressions: Chest X-Ray 12/16/18 12:07 IMPRESSION: Cardiomegaly without acute abnormality of the lungs in AP projection. Assessment & Plan - Diagnosis (1) Hyperthyroidism Is this a current diagnosis for this admission?: Yes Plan: 12/16/2018-patient has a history of hypothyroidism which was recently diagnosed 100 and he is started following up with her manager home in the [facility] taking metoprolol 25 mg p.o. twice a day at home. According to the patient ultrasound of the thyroid gland was done deferred to multiple cysts. TSH is less than 0.01. Free T3 is 6.75 and a free T4 is 2.05. The ER physician spoke to the manager home's recommendation is not to give methimazole because a free T3 of 4/10 3. The plan is to admit him to the hospital for observation to control the heart rate. I started him on Lopressor 30 mg IV every 6 as needed to keep the heart rate less than 110 and also started him on metoprolol 100 mg p.o. twice daily. Echocardiogram was requested to rule out any tachycardia induced cardiomyopathy. (2) Tachycardia Is this a current diagnosis for this admission?: Yes Plan: 12/16/2018 tachycardia is most likely secondary to hyperthyroidism. Heart rate is in the 140s not responded to propranolol 20 mg that was given in the ER. We are going to start him on Lopressor 10 mg IV every 6 as needed keep heart rate less than 110 and was also placed on metoprolol 100 mg p.o. daily scheduled medication. As per the manager home recommendations not to be placed on methimazole . (3) COPD (chronic obstructive pulmonary disease) Is this a current diagnosis for this admission?: Yes Plan: 12/16/2018 patient is given history of COPD secondary to 40 years of smoking. He quit smoking last September. Patient was encouraged to continue to not to smoke. Patient is not on home oxygen. (4) HTN (hypertension) Is this a current diagnosis for this admission?: Yes Plan: 12/16/2018 patient is given the history of hypertension at home. Patient recent ER is 130/70. (5) Spinal stenosis Is this a current diagnosis for this admission?: Yes Plan: 12/16/2018 patient is given the history of spinal stenosis he takes [place] every 6 as needed at home and also take Tylenol with codeine at home plan is to resume those medications while he was in the hospital. (6) Neuropathy Is this a current diagnosis for this admission?: Yes Plan: 12/16/2018 patient given history of neuropathy in both hands and feet. Is taking gabapentin at home plan is to resume those medications. - Time Time Spent: 50 to 70 Minutes Medications reviewed and adjusted accordingly: Yes Anticipated discharge: Home
[2018-12-17] MEDS: ENOXAPARIN SODIUM INJ 40 MG/0.4 ML DISP.SYRIN SUBCUT SCH (09:41)
[2018-12-17] MEDS: DOCUSATE SODIUM 100 MG CAPSULE PO SCH (09:48)
[2018-12-17 13:15] VITALS: BP 106/57
--- NOTE | 2018-12-17 16:59 | PDOC DISCHARGE SUMMARY ---
General - Admit/Disc Date/PCP Admission Date/Primary Care Provider: 12/16/18 15:43 STEVEN SO MD Discharge Date: 12/17/18 - Discharge Diagnosis (1) Hyperthyroidism Is this a current diagnosis for this admission?: Yes Summary: 12/16/2018-patient has a history of hypothyroidism which was recently diagnosed 100 and he is started following up with her electric lift truck driver in the [facility] taking metoprolol 25 mg p.o. twice a day at home. According to the patient ultrasound of the thyroid gland was done deferred to multiple cysts. TSH is less than 0.01. Free T3 is 6.75 and a free T4 is 2.05. The ER physician spoke to the electric lift truck driver's recommendation is not to give methimazole because a free T3 of 4/10 3. The plan is to admit him to the hospital for observation to control the heart rate. I started him on Lopressor 30 mg IV every 6 as needed to keep the heart rate less than 110 and also started him on metoprolol 100 mg p.o. twice daily. Echocardiogram was requested to rule out any tachycardia induced cardiomyopathy. [id number] male admitted with tachycardia with a heart rate around 140 and found to have hyperthyroidism with very low TSH. He was admitted for control of the heart rate. No complications during the hospital stay. He was a started on Lopressor 10 mg IV every 6 as needed on metoprolol 100 mg p.o. twice a daily. Heart rate this morning is 58. Patient was asymptomatic. Plan is to discharge him home on metoprolol 50 mg p.o. twice daily I strongly advised him to follow-up with electric lift truck driver and also his primary care physician within 3-5 days. Patient and family verbalized response. (2) Tachycardia Is this a current diagnosis for this admission?: Yes Summary: 12/16/2018 tachycardia is most likely secondary to hyperthyroidism. Heart rate is in the 140s not responded to propranolol 20 mg that was given in the ER. We are going to start him on Lopressor 10 mg IV every 6 as needed keep heart rate less than 110 and was also placed on metoprolol 100 mg p.o. daily scheduled medication. As per the electric lift truck driver recommendations not to be placed on methimazole . 12/17/2018-patient was admitted with a sinus tachycardia around 140-150. Started on metoprolol 100 mg p.o. twice daily and Lopressor 10 mg IV every 6 as needed. With p.o. medication heart rate was well controlled. pt is asymptomatic . He was discharged home on metoprolol 50 mg p.o. twice a day and he was strongly advised to follow-up with his electric lift truck driver in 1 week. (3) COPD (chronic obstructive pulmonary disease) Is this a current diagnosis for this admission?: Yes Summary: 12/16/2018 patient is given history of COPD secondary to 40 years of smoking. He quit smoking last September. Patient was encouraged to continue to not to smoke. Patient is not on home oxygen. 12/17/2018 patient is given the history of COPD probably secondary to 40 years of smoking. He quit smoking 3 months ago. Patient does not want any nicotine patches. (4) HTN (hypertension) Is this a current diagnosis for this admission?: Yes Summary: 12/16/2018 patient is given the history of hypertension at home. Patient recent ER is 130/70. 12/17/2018-patient has history of hypertension here today his blood pressure is 115/61. Well controlled. Patient was advised to continue his home medications. (5) Spinal stenosis Is this a current diagnosis for this admission?: Yes Summary: 12/16/2018 patient is given the history of spinal stenosis he takes [place] every 6 as needed at home and also take Tylenol with codeine at home plan is to resume those medications while he was in the hospital. 12/17/2018-patient has history of spinal stenosis he takes [place] every 6 hours and Tylenol with codeine at home. Those medications are given during the hospital stay and patient was advised to continue those medications at home. (6) Neuropathy Is this a current diagnosis for this admission?: Yes Summary: 12/16/2018 patient given history of neuropathy in both hands and feet. Is taking gabapentin at home plan is to resume those medications. 12/17/2018-patient is giving history of neuropathy in arms and legs he is on gabapentin which was resumed during the hospital stay and patient was advised to continue the home medication at home. - Additional Information Resuscitation Status: Full Code Discharge Diet: Cardiac Discharge Activity: Activity As Tolerated, Balance Activity w/Rest Prescriptions: Metoprolol Succinate [Toprol Xl 50 mg Tab.sr] 50 mg PO Q12 #60 tab.sr.24h Home Medications: Acetaminophen with Codeine [Tylenol with Codeine #3 Tablet] 1 tab PO Q8HP PRN 12/16/18 Albuterol Sulfate [Proair HFA Inhalation Aerosol 8.5 gm MDI] 2 puff IH Q6HP PRN 12/16/18 Aspirin [Ecotrin 81 mg EC Tablet] 81 mg PO DAILY 12/16/18 Buprenorphine [Butrans] 10 mcg TD TU@1000 12/16/18 Cyanocobalamin (Vitamin B-12) [Vitamin B-12 1000 mcg Tablet] 1,000 mcg PO DAILY 12/16/18 Ferrous Sulfate [Feosol 325 mg Tablet] 325 mg PO DAILY 12/16/18 Fluticasone/Umeclidin/Vilanter [Trelegy 100-62.5-25 Mcg Ellipta 14 Dose/Dpi] 1 puff IH DAILY 12/16/18 Gabapentin [Neurontin] 800 mg PO Q6 12/16/18 Guaifenesin [Mucinex] 1,200 mg PO BIDP PRN 12/16/18 Hydrocodone Bit/Acetaminophen [Hydrocodon-Acetaminophen 5-325] 1 tab PO Q6 12/16/18 Melatonin [Melatonin 5 mg Tablet] 5 mg PO HSP PRN 12/16/18 Multivitamin [Tab-A-Jake (Multiple Vitamin) Tablet] 1 tab PO DAILY 12/16/18 [place]-3/Dha/Epa/Fish Oil [Fish Oil 500 mg Softgel] 1 cap PO DAILY 12/16/18 Tumeric 500mg 500 mg PO DAILY 12/16/18 Metoprolol Succinate [Toprol Xl 50 mg Tab.sr] 50 mg PO Q12 #60 tab.sr.24h 12/17/18 History of Present Illness History of Present Illness: RADHA CHOW is a 68 year old male with history of hyperthyroidism, hypertension, hyperlipidemia, spinal stenosis, osteoarthritis went to see Dr. Quintanilla for colonoscopy found to have a heart rate of 140 he was referred to the ER for further evaluation. Patient was asymptomatic. The ER physician gave her propranolol and without any success medical consult was called for admission. Went to talk to the patient in the ER room #17 patient is asymptomatic. able To communicate very well. Patient agreed to stay in the hospital overnight. He is used to take metoprolol 25 mg twice a day at home because of the colonoscopy procedure he missed a dose for 1 day. No complaints of headaches no dizziness no falls. Denies any nausea or chest pains vomiting's or diarrhea. Physical Exam Vital Signs: Temp Pulse Resp BP Pulse Ox 97.7 F 58 L 20 106/57 L 99 12/17/18 15:56 12/17/18 15:56 12/17/18 15:56 12/17/18 15:56 12/17/18 15:56 Intake & Output 12/16/18 12/17/18 12/18/18 06:59 06:59 06:59 Weight 95.9 kg General appearance: PRESENT: no acute distress Head exam: PRESENT: atraumatic Eye exam: PRESENT: PERRLA Mouth exam: PRESENT: dry mucosa Neck exam: ABSENT: carotid bruit, JVD, lymphadenopathy, thyromegaly Respiratory exam: PRESENT: decreased breath sounds Cardiovascular exam: PRESENT: RRR. ABSENT: diastolic murmur, rubs, systolic murmur GI/Abdominal exam: PRESENT: normal bowel sounds, soft. ABSENT: distended, guarding, mass, organolmegaly, rebound, tenderness Extremities exam: PRESENT: full ROM. ABSENT: calf tenderness, clubbing, pedal edema Neurological exam: PRESENT: alert, awake, oriented to person, oriented to place, oriented to time, oriented to situation, CN II-XII grossly intact. ABSENT: motor sensory deficit Results Laboratory Results: 12/17/18 03:49 12/17/18 03:49 12/17/18 12/17/18 12/17/18 03:49 03:49 03:49 WBC 6.3 RBC 4.12 L Hgb 12.4 L Hct 37.3 L MCV 91 MCH 30.2 MCHC 33.3 RDW 13.3 Plt Count 126 L Seg Neutrophils % 50.0 Lymphocytes % 37.5 Monocytes % 9.2 Eosinophils % 2.7 Basophils % 0.6 Absolute Neutrophils 3.1 Absolute Lymphocytes 2.4 Absolute Monocytes 0.6 Absolute Eosinophils 0.2 Absolute Basophils 0.0 Sodium 140.8 Potassium 4.8 Chloride 105 Carbon Dioxide 28 Anion Gap 8 BUN 14 Creatinine 0.73 Est GFR ( Amer) > 60 Est GFR (Non-Af Amer) > 60 Glucose 96 Calcium 8.4 Magnesium 2.0 Total Bilirubin 0.6 AST 30 ALT 33 Alkaline Phosphatase 63 Total Protein 5.5 L Albumin 3.3 L Triglycerides 69 Cholesterol 107.18 LDL Cholesterol Direct 69 VLDL Cholesterol 14.0 HDL Cholesterol 36 L TSH < 0.01 L Free T4 2.02 Free T3 pg/mL 5.86 H 12/16/18 12/16/18 12/16/18 12:09 16:20 16:20 Creatine Kinase 190 H CK-MB (CK-2) 4.43 Troponin I 0.015 NT-Pro-B Natriuret Pep 12/16/18 12/16/18 12/17/18 21:58 21:58 03:49 Creatine Kinase 160 165 CK-MB (CK-2) 3.66 Troponin I NT-Pro-B Natriuret Pep 12/17/18 12/17/18 03:49 03:49 Creatine Kinase CK-MB (CK-2) 3.50 Troponin I NT-Pro-B Natriuret Pep 2030 H Impressions: Chest X-Ray 12/16/18 12:07 IMPRESSION: Cardiomegaly without acute abnormality of the lungs in AP projection. Qualifiers - * PATIENT BEING DISCHARGED WITH ANY OF THE FOLLOWING DIAGNOSIS: No VTE patient discharged on overlapping Therapy?: Yes
[2018-12-17] MEDS ORDERED: METOPROLOL SUCCINATE 50 MG TAB.SR.24H PO SCH (22:00)
== END 2018-12-17 16:20 | disposition home or self-care (01) ==
LOC: ER 11:47 → INTOOBSV 15:43 → EH 15:43 → 5 23:30
PROVIDERS: ADMIT Hospitalist; ATTEND Hospitalist
DX: E05.90 Thyrotoxicosis, unspecified without thyrotoxic crisis or storm (principal); R00.0 Tachycardia, unspecified; J44.9 Chronic obstructive pulmonary disease, unspecified; I10 Essential (primary) hypertension; M48.00 Spinal stenosis, site unspecified; G62.89 Other specified polyneuropathies; M19.90 Unspecified osteoarthritis, unspecified site; I44.7 Left bundle-branch block, unspecified; Z87.891 Personal history of nicotine dependence; Z79.899 Other long term (current) drug therapy; Z79.82 Long term (current) use of aspirin; Z79.891 Long term (current) use of opiate analgesic; Z86.79 Personal history of other diseases of the circulatory system; Z98.890 Other specified postprocedural states
CPT/HCPCS: 93005; 99285; 96374; 36415 ×2; 84439 ×2; 82553 ×2; 82550 ×2; 83735; 84443 ×2; 85025 ×2; 80048; 80053; 84484; 84481 ×2; 80061; 83880; 93306; 71045; 93010; A9270 ×6; J2270; J1650 ×2; J3490

== ENCOUNTER → 2019-01-27 | Outpatient (CLI) | payer MEDICARE, OTHER ==
[2019-01-27 11:16] LABS: FREE T4 (FREE THYROXINE) 0.92 ng/dL (0.78-2.19)
[2019-01-27 11:30] LABS: THYROID STIMULATING HORMONE 2.25 uIU/mL (0.47-4.68)
== END ==
LOC: OD 09:54
PROVIDERS: ATTEND Internal Medicine Endocrinology, Diabetes & Metabolism
DX: E05.90 Thyrotoxicosis, unspecified without thyrotoxic crisis or storm (principal)
CPT/HCPCS: 36415; 84439; 84443

== ENCOUNTER → 2019-03-22 | Outpatient (CLI) | payer MEDICARE, OTHER ==
--- NOTE | 2019-03-22 16:17 | RADIOLOGY REPORT (SQ) ---
EXAM DESCRIPTION: FOOT LEFT 2 VIEWS; TOES LEFT COMPLETED DATE/TIME: 03/22/2019 4:05 pm REASON FOR STUDY: PAIN OF LEFT GREAT TOE; COCCYDYNIA M79.675 PAIN IN LEFT TOE(S) COMPARISON: None. NUMBER OF VIEWS: Five views. TECHNIQUE: AP, lateral, and oblique images acquired of the left first toe. Two views of the left fo ot. LIMITATIONS: None. FINDINGS: MINERALIZATION: Osteopenia. BONES: No acute fracture or dislocation. No worrisome bone lesions. JOINTS: No effusions. SOFT TISSUES: No soft tissue swelling. No foreign body. OTHER: No other significant finding. IMPRESSION: NO RADIOGRAPHIC EVIDENCE OF ACUTE INJURY. COMMENT: SITE OF TRAUMA/COMPLAINT MARKED/STAMP COMPLETED: NOT APPLICABLE. TECHNICAL DOCUMENTATION: JOB ID: [id number] [employer] All Rights Reserved Reading location - IP/workstation name: [email or web address]
--- NOTE | 2019-03-22 16:17 | RADIOLOGY REPORT (SQ) ---
EXAM DESCRIPTION: FOOT LEFT 2 VIEWS; TOES LEFT COMPLETED DATE/TIME: 03/22/2019 4:05 pm REASON FOR STUDY: PAIN OF LEFT GREAT TOE; COCCYDYNIA M79.675 PAIN IN LEFT TOE(S) COMPARISON: None. NUMBER OF VIEWS: Five views. TECHNIQUE: AP, lateral, and oblique images acquired of the left first toe. Two views of the left fo ot. LIMITATIONS: None. FINDINGS: MINERALIZATION: Osteopenia. BONES: No acute fracture or dislocation. No worrisome bone lesions. JOINTS: No effusions. SOFT TISSUES: No soft tissue swelling. No foreign body. OTHER: No other significant finding. IMPRESSION: NO RADIOGRAPHIC EVIDENCE OF ACUTE INJURY. COMMENT: SITE OF TRAUMA/COMPLAINT MARKED/STAMP COMPLETED: NOT APPLICABLE. TECHNICAL DOCUMENTATION: JOB ID: [id number] [employer]- All Rights Reserved Reading location - IP/workstation name: [email or web address]
--- NOTE | 2019-03-22 16:19 | RADIOLOGY REPORT (SQ) ---
EXAM DESCRIPTION: SACRUM AND COCCYX COMPLETED DATE/TIME: 03/22/2019 4:05 pm REASON FOR STUDY: PAIN OF LEFT GREAT TOE; COCCYDYNIA M79.675 PAIN IN LEFT TOE(S) COMPARISON: None. NUMBER OF VIEWS: Three views. TECHNIQUE: AP, lateral, and tilt views of the sacrum and coccyx. LIMITATIONS: None. FINDINGS: MINERALIZATION: Osteopenia. BONES: No acute fracture or dislocation. No worrisome bone lesions. SOFT TISSUES: No soft tissue swelling. No foreign body. OTHER: No other significant finding. IMPRESSION: No fracture. TECHNICAL DOCUMENTATION: JOB ID: [id number] [employer]- All Rights Reserved Reading location - IP/workstation name: [email or web address]
== END ==
LOC: OD 15:27
PROVIDERS: ATTEND Family Medicine
DX: M79.675 Pain in left toe(s) (principal); M53.3 Sacrococcygeal disorders, not elsewhere classified
CPT/HCPCS: 72220

== ENCOUNTER → 2019-04-09 | Outpatient (CLI) | payer MEDICARE, OTHER ==
--- NOTE | 2019-04-09 15:20 | RADIOLOGY REPORT (SQ) ---
EXAM DESCRIPTION: L SPINE FLEX/EXT ONLY COMPLETED DATE/TIME: 04/09/2019 12:53 pm REASON FOR STUDY: SPONDYLS W/O MYELOPATHY OR RADICULOPATHY, LUMBOSACR REGION M47.817 SPONDYLS W/O M YELOPATHY OR RADICULOPATHY, LUMBOSACR COMPARISON: 08/12/2018 TECHNIQUE: Lateral neutral, flexion and extension radiographs of the spine. NUMBER OF VIEWS: Three views. LIMITATIONS: Scoliosis. FINDINGS: There is ventral wedging of T12 and L2. Advanced spondylosis at multiple levels. No inst ability with flexion and extension. OTHER: No other significant finding. IMPRESSION: No instability. Compression fracture T12 which was not evident on the prior. TECHNICAL DOCUMENTATION: JOB ID: [id number] [employer]- All Rights Reserved Reading location - IP/workstation name: [email or web address]
== END ==
LOC: OD 11:52
DX: M47.817 Spondylosis without myelopathy or radiculopathy, lumbosacral region (principal)
CPT/HCPCS: 72120

== ENCOUNTER → 2019-04-09 | Outpatient (CLI) | payer MEDICARE, OTHER | LOC: OD 11:48 | PROVIDERS: ATTEND Family Medicine | DX: E05.90 Thyrotoxicosis, unspecified without thyrotoxic crisis or storm (principal) | CPT/HCPCS: 36415; 84436; 84443 ==

== ENCOUNTER → 2019-05-07 | Outpatient (CLI) | payer MEDICARE, OTHER | LOC: OD 13:16 | PROVIDERS: ATTEND Family Medicine | DX: E05.00 Thyrotoxicosis with diffuse goiter without thyrotoxic crisis or storm (principal) | CPT/HCPCS: 36415; 84436; 84443 ==

== ENCOUNTER 2019-06-07 11:40 | Inpatient (IN) | payer MEDICARE, OTHER ==
[2019-06-07] MEDS ORDERED: NORMAL SALINE 1000 ML 1,000 ML IV ONE ×2 (12:12→13:55)
--- NOTE | 2019-06-07 12:15 | ER Document Report ---
ED Medical Screen (RME) - General Chief Complaint: Numbness of Face Stated Complaint: JAW PAIN Time Seen by Provider: 06/07/19 12:01 Primary Care Provider: STEVEN SO MD [Primary Care Provider] - Follow up as needed TRAVEL OUTSIDE OF THE [place] IN LAST 30 DAYS: No - HPI Notes: 06/07/19 12:12 Patient is a 68-year-old male with a history of COPD, hypertension, hypercholesterolemia, peripheral neuropathy without diabetes, history of aortic aneurysm who presents complaining of frontal headache and noticing her right droop in his mouth that began this morning. Patient states that he woke up at 6:00 fine and believes that everything was fine at 9 AM. Patient states that he laid down to take a nap and when he woke up he went to the bathroom and noticed his face and had some numbness associated to his rt cheek as well. Patient states that he does have some right upper dental pain, but is not sure if this is related. Denies drug allergies. He is accompanied by family member who states that he is otherwise acting and behaving normally. Denies any fever, head injury, neck pain, changes in vision/speech/mentation/hearing, URI, sore throat, chest pain, palpitations, syncope, cough, shortness of breath, wheeze, dyspnea, abdominal pain, nausea/vomiting/diarrhea, urinary retention, dysuria, hematuria, loss of control of bowel or bladder, muscle paralysis/weakness, or rash. I have treated and performed a rapid initial assessment of this patient. A comprehensive ED assessment and evaluation of the patient, analysis of test results and completion of medical decision making process will be conducted by additional ED providers. PHYSICAL EXAMINATION: GENERAL: Well-appearing, well-nourished and in no acute distress. A&Ox4. Answers questions appropriately. HEAD: Atraumatic, normocephalic. EYES: Pupils equal round and reactive to light, extraocular movements intact, sclera anicteric, conjunctiva are normal. No nystagmus. ENT: tongue protrudes midline and uvula rises midline NECK: Normal range of motion, supple without lymphadenopathy. No rigidity/meningismus. No midline tenderness. LUNGS: Breath sounds clear to auscultation bilaterally and equal. No wheezes rales or rhonchi. HEART: Regular rate and rhythm without murmurs, rubs, gallops. Musculoskeletal: Ext's b/l: FROM to passive/active. Strength 5+/5. No focal weakness noted. Extremities: No cyanosis, clubbing, or edema b/l. Peripheral pulses 2+. Capillary refill less than 2 seconds. NEUROLOGICAL: NIH 2 (rt side facial droop and dec sensation rt side of face). GCS 15. Cranial nerves grossly intact. Normal speech, normal gait. Pronator drift negative. Heel/noguera, finger/nose wnl. PSYCH: Normal mood, normal affect. SKIN: Warm, Dry, normal turgor, no rashes or lesions noted. - Related Data Allergies/Adverse Reactions: No Known Allergies Allergy (Verified 06/07/19 11:42) Past Medical History - Past Medical History Cardiac Medical History: Reports: Hx Hypercholesterolemia, Hx Hypertension Pulmonary Medical History: Reports: Hx COPD Renal/ Medical History: Denies: Hx Peritoneal Dialysis Past Surgical History: Reports: Hx Cardiac Surgery - aortic aneurysm surgery 2017, Hx Orthopedic Surgery - neck Physical Exam - Vital signs Vitals: Temp Pulse Resp BP Pulse Ox 98.1 F 127 H 18 111/69 92 06/07/19 11:50 06/07/19 11:50 06/07/19 11:50 06/07/19 11:50 06/07/19 11:50 Course - Vital Signs Vital signs: Temp Pulse Resp BP Pulse Ox 98.1 F 127 H 18 111/69 92 06/07/19 11:50 06/07/19 11:50 06/07/19 11:50 06/07/19 11:50 06/07/19 11:50 Doctor's Discharge - Discharge Referrals: STEVEN SO MD [Primary Care Provider] - Follow up as needed
--- NOTE | 2019-06-07 12:41 | RADIOLOGY REPORT (SQ) ---
EXAM DESCRIPTION: CT HEAD WITHOUT COMPLETED DATE/TIME: 06/07/2019 12:33 pm REASON FOR STUDY: rt facial droop, RODRIGUEZ COMPARISON: None. TECHNIQUE: Axial images acquired through the brain without intravenous contrast. Images reviewed wi th bone, brain and subdural windows. Additional sagittal and coronal reconstructions were generated. Images stored on PACS. All CT scanners at this facility use dose modulation, iterative reconstruction, and/or weight based d osing when appropriate to reduce radiation dose to as low as reasonably achievable (ALARA). [facility]: Dose Right [facility]: CareDose [facility]: Dose Right [facility]: Teradose 4D [facility]: Smart Up My Game RADIATION DOSE: CT Rad equipment meets quality standard of care and radiation dose reduction techniq ues were employed. CTDIvol: 53.2 mGy. DLP: 1124 mGy-cm. mGy. LIMITATIONS: None. FINDINGS: VENTRICLES: Normal size and contour. CEREBRUM: No masses. No hemorrhage. No midline shift. No evidence for acute infarction. Normal gra y/white matter differentiation. No areas of low density in the white matter. CEREBELLUM: No masses. No hemorrhage. No alteration of density. No evidence for acute infarction. EXTRAAXIAL SPACES: No fluid collections. No masses. ORBITS AND GLOBE: No intra- or extraconal masses. Normal contour of globe without masses. CALVARIUM: No fracture. PARANASAL SINUSES: There is opacification of the left sphenoid sinus. SOFT TISSUES: No mass or hematoma. OTHER: No other significant finding. IMPRESSION: Left sphenoid sinus disease with no acute intracranial imaging finding. EVIDENCE OF ACUTE STROKE: NO. COMMENT: Quality ID # [id number]: Final reports with documentation of one or more dose reduction techniques (e.g., Automated exposure control, adjustment of the mA and/or kV according to patient size, use of iterative reconstruction technique) TECHNICAL DOCUMENTATION: JOB ID: [id number] [email or web address]- All Rights Reserved Reading location - IP/workstation name: [email or web address]
--- NOTE | 2019-06-07 12:47 | ER Document Report ---
ED Neuro Symptoms/Deficit - General Chief Complaint: Numbness of Face Stated Complaint: JAW PAIN Time Seen by Provider: 06/07/19 12:01 Mode of Arrival: Ambulatory Information source: Patient, Relative, [facility] Records Notes: This 68-year-old male patient comes emergency room with onset at 10 AM this morning of right facial drooping and numbness. He reports a frontal headache since yesterday. He has had poor dentition and toothache for some time, but the right upper mandible pain is getting worse, and he has pain involving the entire side of the face including the jaw. He does have an unsteady gait due to neuropathy related to his spinal stenosis. There is no extremity deficits. He is tachycardic, he has not missed any of his medications. 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 He states he has not missed any of his medications. His heart rate varies from about 115 up to his high as 200, but never stays at the extreme rates for more than several seconds. The patient speech is quite clear, there are no extremity deficits, his cognition is normal, the right facial drooping tends to disappear when I have the patient smile. He does have a quite full mosquera making observation of facial muscles difficult. He is not a TPA candidate. TRAVEL OUTSIDE OF THE [place] IN LAST 30 DAYS: No - Related Data Allergies/Adverse Reactions: No Known Allergies Allergy (Verified 06/07/19 11:42) Past Medical History - General Information source: Patient, Relative, [facility] Records - Social History Smoking Status: Never Smoker Cigarette use (# per day): No Chew tobacco use (# tins/day): No Smoking Education Provided: No Frequency of alcohol use: None Drug Abuse: None Occupation: Retired Lives with: Family Family History: Reviewed & Not Pertinent Patient has suicidal ideation: No Patient has homicidal ideation: No - Past Medical History Cardiac Medical History: Reports: Hx Hypercholesterolemia, Hx Hypertension Pulmonary Medical History: Reports: Hx COPD Neurological Medical History: Reports: Other - Peripheral neuropathy, spinal stenosis Endocrine Medical History: Reports: Hx Hyperthyroidism Renal/ Medical History: Reports: None GI Medical History: Reports: None Musculoskeletal Medical History: Reports Hx Arthritis Skin Medical History: Reports None Psychiatric Medical History: Reports: None Past Surgical History: Reports: Hx Cardiac Surgery - aortic aneurysm surgery 2018. Ablation for atrial flutter in December 2018, Hx Orthopedic Surgery - neck Review of Systems - Review of Systems Constitutional: No symptoms reported EENT: Dental problem Cardiovascular: No symptoms reported Respiratory: No symptoms reported Gastrointestinal: No symptoms reported Genitourinary: No symptoms reported Musculoskeletal: Back pain Skin: No symptoms reported Hematologic/Lymphatic: No symptoms reported Neurological/Psychological: Weakness, Numbness, Tingling Physical Exam - Vital signs Vitals: Temp Pulse Resp BP Pulse Ox 98.1 F 127 H 18 111/69 92 06/07/19 11:50 06/07/19 11:50 06/07/19 11:50 06/07/19 11:50 06/07/19 11:50 Interpretation: Hypotensive, Tachycardic - General General appearance: Appears well, Alert In distress: None - HEENT Head: Normocephalic, Atraumatic Eyes: Normal Pupils: PERRL Mouth/Lips: Other - Several teeth are severely decayed and/or broken off at the gumline. The right upper first molar is broken off at the gumline with extreme tenderness to percuss, and swelling of the gum above the tooth. Neck: Normal. No: Carotid bruit - Respiratory Respiratory status: No respiratory distress Breath sounds: Normal - Cardiovascular Rhythm: Tachycardia - Heart rate is constantly changing, varying between 115 and as high as 200. Heart sounds: Normal auscultation Murmur: No - Abdominal Inspection: Normal Bowel sounds: Normal Tenderness: Nontender - Back Back: Normal - Extremities General upper extremity: Normal inspection General lower extremity: Normal inspection - Neurological Neuro grossly intact: Yes Notes: There appears to be a subtle droop to the right face which is overcome when the patient smiles. There is no the upper facial motor weakness. There is no deviation on tongue protrusion. All extremities have equal strength and coordination. - Psychological Associated symptoms: Normal affect, Normal mood Course - Re-evaluation Re-evalutation: 06/07/19 15:40 Patient's blood pressure became stable in the range of 105 systolic following IV fluids. The heart rate continues to range between 105 and 135, there is an occasional premature beat with delay showing 2-3 P waves prior to the next QRS. - Vital Signs Vital signs: Temp Pulse Resp BP Pulse Ox 98.1 F 104 H 17 93/70 L 95 06/07/19 11:50 06/07/19 12:48 06/07/19 13:46 06/07/19 13:46 06/07/19 13:46 - Laboratory Result Diagrams: 06/07/19 12:38 06/07/19 12:38 Laboratory results interpreted by me: 06/07/19 06/07/19 06/07/19 12:35 12:38 12:38 WBC 10.6 H APTT 36.4 H Carbon Dioxide Glucose POC Glucose 120 H Creatine Kinase 06/07/19 12:38 WBC APTT Carbon Dioxide 32 H Glucose 113 H POC Glucose Creatine Kinase 276 H - Diagnostic Test Radiology reviewed: Image reviewed, Reports reviewed - T scan shows left sphenoid sinus disease with no other acute abnormality. - EKG Interpretation by Me EKG shows normal: Apex, Intervals, QRS Complexes, ST-T Waves Rate: Tachycardia - 109 Rhythm: A.Flutter Apex/QRS: LBBB When compared to previous EKG there are: Changes noted - Consults BEV Parker Time consulted: 15:25 Consulted provider: will come to ER Critical Care Note - Critical Care Note Total time excluding time spent on procedures (mins): 35 Discharge - Discharge Clinical Impression: Atrial flutter with rapid ventricular response, Infected dental caries Hypotension Qualifiers: Hypotension type: unspecified hypotension type Qualified Code(s): I95.9 - Hypotension, unspecified Condition: Good Disposition: ADMITTED INPATIENT Admitting Provider: Kevin (Hospitalist) Unit Admitted: [facility]
[2019-06-07 12:54] LABS: ABSOLUTE BASOPHILS # (AUTO) 0.1 10^3/uL (0.0-0.2); ABSOLUTE EOSINOPHILS # (AUTO) 0.1 10^3/uL (0.0-0.6); ABSOLUTE LYMPHOCYTES (AUTO) 1.8 10^3/uL (0.5-4.7); ABSOLUTE MONOCYTES (AUTO) 1.1 10^3/uL (0.1-1.4); ABSOLUTE NEUT (AUTO) 7.6 10^3/uL (1.7-8.2); BASOPHILS % (AUTO) 0.6 % (0-2); EOSINOPHILS % (AUTO) 0.5 % (0-6); HEMATOCRIT 46.6 % (37.9-51.0); HEMOGLOBIN 15.8 g/dL (13.5-17.0); LYMPHOCYTES % (AUTO) 16.5 % (13-45); MEAN CORPUSCULAR HEMOGLOBIN 32.5 pg (27.0-33.4); MEAN CORPUSCULAR HGB CONC 33.9 g/dL (32.0-36.0); MEAN CORPUSCULAR VOLUME 96 fl (80-97); MONOCYTES % (AUTO) 10.5 % (3-13); PLATELET COUNT 158 10^3/uL (150-450); RED BLOOD COUNT 4.86 10^6/uL (4.35-5.55); RED CELL DISTRIBUTION WIDTH 13.9 % (11.5-14.0); SEGMENTED NEUTROPHILS % (AUTO) 71.9 % (42-78); TOTAL CELLS COUNTED % (AUTO) 100 %; WHITE BLOOD COUNT 10.6 10^3/uL (4.0-10.5)
[2019-06-07 12:56] LABS: INTERNATIONAL RATION (INR) 1.21
[2019-06-07 12:57] LABS: PARTIAL THROMBOPLASTIN TIME 36.4 SEC (23.5-35.8)
[2019-06-07 12:59] LABS: PROTHROMBIN TIME 15.4 SEC (11.4-15.4)
[2019-06-07 13:18] LABS: ALANINE AMINOTRANSFERASE 26 U/L (21-72); ALBUMIN 4.2 g/dL (3.5-5.0); ALKALINE PHOSPHATASE 66 U/L (38-126); ANION GAP 10 (5-19); ASPARTATE AMINO TRANSFERASE 31 U/L (17-59); BILIRUBIN,DIRECT 0.2 mg/dL (0.0-0.4); BILIRUBIN,TOTAL 0.8 mg/dL (0.2-1.3); BLOOD UREA NITROGEN 12 mg/dL (7-20); CARBON DIOXIDE 32 mmol/L (22-30); CHLORIDE 99 mmol/L (98-107); CREATINE KINASE 276 U/L (55-170); GLUCOSE 113 mg/dL (75-110); POTASSIUM 4.2 mmol/L (3.6-5.0)
[2019-06-07 13:37] LABS: FREE T3 3.69 pg/mL (2.77-5.27); FREE T4 (FREE THYROXINE) 1.07 ng/dL (0.78-2.19)
[2019-06-07 13:51] LABS: THYROID STIMULATING HORMONE 2.92 uIU/mL (0.47-4.68)
[2019-06-07] MEDS ORDERED: CLINDAMYCIN 600 MG/D5W RTU 600 MG/50 ML RTUPB IV ONE (13:55)
[2019-06-07] MEDS ORDERED: KETOROLAC TROMETHAMINE INJ/PF 30 MG/1 ML SDV IV ONE (14:11)
--- NOTE | 2019-06-07 14:50 | EKG REPORT ---
SEVERITY:- ABNORMAL ECG - LEFT BUNDLE BRANCH BLOCK SINUS TACHYCARDIA : Confirmed by: Roma Blackwood MD 07-Jun-2019 14:49:34
[2019-06-07 16:27] LABS: APPEARANCE,URINE CLEAR; BILIRUBIN,URINE NEGATIVE (NEGATIVE); COLOR,URINE YELLOW; GLUCOSE, URINE NEGATIVE (NEGATIVE); KETONES,URINE NEGATIVE (NEGATIVE); LEUKOCYTE ESTERASE,URINE NEGATIVE (NEGATIVE); NITRITE,URINE NEGATIVE (NEGATIVE); PROTEIN,URINE NEGATIVE (NEGATIVE); URINE SPECIFIC GRAVITY 1.012; UROBILINOGEN,URINE NEGATIVE mg/dL (<2.0)
[2019-06-07] MEDS ORDERED: MELATONIN 5 MG TABLET PO PRN (17:40)
[2019-06-07] MEDS ORDERED: ALBUTEROL SULFATE HFA (90 MCG/PUFF) 200 PUFF/8.5 GM MDI IH PRN (17:40)
[2019-06-07] MEDS ORDERED: PENICILLIN V POTASSIUM 250 MG TABLET PO SCH (18:00)
--- NOTE | 2019-06-07 18:04 | PDOC H&P ---
History of Present Illness Admission Date/PCP: 06/07/19 16:15 STEVEN SO MD Patient complains of: 68-year-old male came into the emergency room this morning with right jaw pain. Going to the patient he has had this pain for 2 or 3 days now while here in the emergency room being worked up for his right jaw pain which turns out to be dental abscess, patient had episodes of tachycardia which appears to be atrial flutter. Patient has a history of atrial flutter in fact backing December of this year had ablation procedure by Dr. Acuna in [place] patient at that time also was diagnosed with thyroid toxicosis currently taking Tapazole 5 mg daily. While in the emergency room the patient's rate went from around 100 up to 200 although the patient admits he was asymptomatic during this time. ER physician has given the patient 2 L of fluid and is asked to see the patient for admission. Patient denies having any chest pains no nausea no vomiting no weakness cardiac symptoms at all. Patient's toll collector is Dr. Munoz, patient is currently on Eliquis. She has a [id number] history of cigarettes History of Present Illness: RADHA CHOW is a 68 year old male Past Medical History Cardiac Medical History: Reports: Hyperlipidema, Hypertension, Other - Atrial flutter Pulmonary Medical History: Reports: Chronic Obstructive Pulmonary Disease (COPD) Neurological Medical History: Reports: Other - Peripheral neuropathy, spinal stenosis Endocrine Medical History: Reports: Hyperthyroidism, Other - Neuropathy, idiopathic Renal/ Medical History: Reports: None GI Medical History: Reports: None Musculoskeltal Medical History: Reports: Arthritis Skin Medical History: Reports: None Psychiatric Medical History: Reports: None Past Surgical History Past Surgical History: Reports: Orthopedic Surgery - neck Social History Lives with: Family Smoking Status: Never Smoker Frequency of Alcohol Use: None Hx Recreational Drug Use: No Hx Prescription Drug Abuse: No Family History Family History: Reviewed & Not Pertinent Parental Family History Reviewed: No Children Family History Reviewed: Unknown Sibling(s) Family History Reviewed.: Unknown Medication/Allergy Home Medications: Acetaminophen with Codeine [Acetaminophen-Cod #4 Tablet] 1 each PO BIDP PRN 06/07/19 Albuterol Sulfate [Proair Hfa Inhalation Aerosol 8.5 gm Mdi] 2 puff IH Q4HP PRN 06/07/19 Apixaban [Eliquis 5 mg Tablet] 5 mg PO Q12 06/07/19 Cyanocobalamin (Vitamin B-12) [B-12] 1,000 mcg PO DAILY 06/07/19 Diclofenac Sodium [Voltaren] 100 gm TP QIDP PRN 06/07/19 Fluticasone/Umeclidin/Vilanter [Trelegy 100-62.5-25 Mcg Ellipta 14 Dose/Dpi] 1 puff IH DAILY 06/07/19 Gabapentin [Neurontin] 800 mg PO Q6 06/07/19 Guaifenesin [Mucinex] 1,200 mg PO BIDP PRN 06/07/19 Hydrocodone/Acetaminophen [[place] 10-325 mg Tablet] 1 tab PO QID 06/07/19 Iron 65 mg PO DAILY 06/07/19 Melatonin [Melatonin 5 mg Tablet] 5 mg PO HSP PRN 06/07/19 Methimazole [Tapazole 5 Mg Tablet] 5 mg PO DAILY 06/07/19 Metoprolol Tartrate [Lopressor 50 mg Tablet] 50 mg PO Q12 06/07/19 Multivitamin [One-A-Day Essential] 1 each PO DAILY 06/07/19 [place]-3/Dha/Epa/Fish Oil [Fish Oil 500 mg Softgel] 1 each PO DAILY 06/07/19 Rosuvastatin Calcium [Crestor 10 mg Tablet] 10 mg PO DAILY 06/07/19 Turmeric/Turmeric Root Extract [Turmeric 500 mg Capsule] 1 each PO DAILY 06/07/19 Allergies/Adverse Reactions: No Known Allergies Allergy (Verified 06/07/19 11:42) Review of Systems Constitutional: PRESENT: as per HPI Eyes: ABSENT: visual disturbances Ears: ABSENT: hearing changes Cardiovascular: PRESENT: as per HPI Respiratory: PRESENT: as per HPI Gastrointestinal: PRESENT: as per HPI Neurological: PRESENT: as per HPI Psychiatric: PRESENT: as per HPI Physical Exam Vital Signs: Temp Pulse Resp BP Pulse Ox 98.1 F 104 H 18 88/50 L 93 06/07/19 11:50 06/07/19 12:48 06/07/19 17:17 06/07/19 17:08 06/07/19 17:17 Intake & Output 06/06/19 06/07/19 06/08/19 06:59 06:59 06:59 Intake Total 2049 Balance 2049 Weight 98.5 kg General appearance: PRESENT: no acute distress, other - Patient is absolutely asymptomatic except for his right jaw pain Head exam: PRESENT: atraumatic Ear exam: PRESENT: normal external ear exam Mouth exam: PRESENT: other - Tenderness palpate the right upper jaw with some mild soft tissue swelling Neck exam: ABSENT: carotid bruit, JVD, lymphadenopathy, thyromegaly Respiratory exam: PRESENT: clear to auscultation kasi. ABSENT: rales, rhonchi, wheezes Cardiovascular exam: PRESENT: RRR, other - No evidence of atrial flutter or fib at this time. ABSENT: diastolic murmur, rubs, systolic murmur Neurological exam: PRESENT: alert, awake, oriented to person, oriented to place, oriented to time, oriented to situation, CN II-XII grossly intact. ABSENT: motor sensory deficit Psychiatric exam: PRESENT: appropriate affect, normal mood, other - Does not. ABSENT: homicidal ideation, suicidal ideation Results Laboratory Results: 06/07/19 12:38 06/07/19 12:38 06/07/19 06/07/19 06/07/19 12:38 12:38 12:38 WBC 10.6 H RBC 4.86 Hgb 15.8 Hct 46.6 MCV 96 MCH 32.5 MCHC 33.9 RDW 13.9 Plt Count 158 Seg Neutrophils % 71.9 Lymphocytes % 16.5 Monocytes % 10.5 Eosinophils % 0.5 Basophils % 0.6 Absolute Neutrophils 7.6 Absolute Lymphocytes 1.8 Absolute Monocytes 1.1 Absolute Eosinophils 0.1 Absolute Basophils 0.1 Sodium 141.1 Potassium 4.2 Chloride 99 Carbon Dioxide 32 H Anion Gap 10 BUN 12 Creatinine 0.81 Est GFR ( Amer) > 60 Est GFR (Non-Af Amer) > 60 Glucose 113 H Calcium 9.0 Total Bilirubin 0.8 AST 31 ALT 26 Alkaline Phosphatase 66 Total Protein 7.0 Albumin 4.2 TSH 2.92 Free T4 1.07 Free T3 pg/mL 3.69 Urine Color Urine Appearance Urine pH Ur Specific Lexa Urine Protein Urine Glucose (UA) Urine Ketones Urine Blood Urine Nitrite Ur Leukocyte Esterase Urine WBC (Auto) Urine RBC (Auto) 06/07/19 15:50 WBC RBC Hgb Hct MCV MCH MCHC RDW Plt Count Seg Neutrophils % Lymphocytes % Monocytes % Eosinophils % Basophils % Absolute Neutrophils Absolute Lymphocytes Absolute Monocytes Absolute Eosinophils Absolute Basophils Sodium Potassium Chloride Carbon Dioxide Anion Gap BUN Creatinine Est GFR ( Amer) Est GFR (Non-Af Amer) Glucose Calcium Total Bilirubin AST ALT Alkaline Phosphatase Total Protein Albumin TSH Free T4 Free T3 pg/mL Urine Color YELLOW Urine Appearance CLEAR Urine pH 6.0 Ur Specific Lexa 1.012 Urine Protein NEGATIVE Urine Glucose (UA) NEGATIVE Urine Ketones NEGATIVE Urine Blood NEGATIVE Urine Nitrite NEGATIVE Ur Leukocyte Esterase NEGATIVE Urine WBC (Auto) 1 Urine RBC (Auto) 2 06/07/19 06/07/19 12:38 12:38 Creatine Kinase 276 H Troponin I < 0.012 Impressions: Head CT 06/07/19 12:11 IMPRESSION: Left sphenoid sinus disease with no acute intracranial imaging finding. EVIDENCE OF ACUTE STROKE: NO. Assessment and Plan - Diagnosis (1) Dental abscess Is this a current diagnosis for this admission?: Yes Plan: Patient is being placed on Pen-Vee K 250 mg 4 times daily (2) Atrial flutter with rapid ventricular response Is this a current diagnosis for this admission?: Yes Plan: Patient currently has no clinical indication of being in atrial flutter at this time (3) Hypotension Qualifiers: Hypotension type: unspecified hypotension type Qualified Code(s): I95.9 - Hypotension, unspecified Is this a current diagnosis for this admission?: Yes Plan: Patient's pressures about 90/60, however even at its highest was only 105. Patient is asymptomatic (4) Hyperthyroidism Is this a current diagnosis for this admission?: No (5) Neuropathy Is this a current diagnosis for this admission?: No - Time Time Spent with patient: 35 or more minutes Smoking Cessation Education: 3 to 10 minutes Medications reviewed and adjusted accordingly: Yes Anticipated discharge: Home Within: within 48 hours
[2019-06-07] MEDS: HYDROCODONE/ACETAMINOPHEN 10-325 MG TABLET PO SCH (18:22)
[2019-06-07] MEDS: GABAPENTIN 400 MG CAPSULE PO SCH (20:47)
[2019-06-07] MEDS ORDERED: TEMAZEPAM 15 MG CAPSULE PO PRN (21:13)
[2019-06-07] MEDS ORDERED: MAG HYDROX/AL HYDROX/SIMETH SUSP 30 ML UDCUP PO PRN (21:13)
[2019-06-07] MEDS ORDERED: ONDANSETRON 4 MG TAB.RAPDIS PO PRN (21:13)
[2019-06-07] MEDS ORDERED: ONDANSETRON HCL INJ/PF 4 MG/2 ML SDV IV PRN (21:13)
[2019-06-07] MEDS ORDERED: MAGNESIUM HYDROXIDE SUSP 30 ML UDCUP PO PRN (21:13)
[2019-06-07] MEDS ORDERED: ACETAMINOPHEN 325 MG TABLET PO PRN (21:16)
[2019-06-07] MEDS ORDERED: HYDRALAZINE HCL INJ/PF 20 MG/1 ML SDV IV PRN (21:16)
[2019-06-07] MEDS ORDERED: KETOROLAC TROMETHAMINE INJ/PF 30 MG/1 ML SDV IV PRN (21:18)
[2019-06-07] MEDS ORDERED: SIMETHICONE 80 MG TAB.CHEW PO PRN (21:18)
[2019-06-07] MEDS: METOPROLOL TARTRATE 50 MG TABLET PO SCH (21:47)
[2019-06-07] MEDS: APIXABAN 5 MG TABLET PO SCH (21:48)
[2019-06-07] MEDS: FAMOTIDINE 20 MG TABLET PO SCH (21:48)
[2019-06-07] MEDS ORDERED: ATORVASTATIN CALCIUM 20 MG TABLET PO SCH (22:00)
[2019-06-07] MEDS ORDERED: PENICILLIN V POTASSIUM 500 MG TABLET ONE (23:48)
[2019-06-08] MEDS ORDERED: PENICILLIN V POTASSIUM 250 MG TABLET PO SCH
[2019-06-08] MEDS: HYDROCODONE/ACETAMINOPHEN 10-325 MG TABLET PO SCH ×2 (00:17→05:21)
[2019-06-08] MEDS: GABAPENTIN 400 MG CAPSULE PO SCH ×2 (00:17→05:21)
[2019-06-08] MEDS: PENICILLIN V POTASSIUM 500 MG TABLET PO SCH ×2 (00:18→05:22)
[2019-06-08] MEDS: APIXABAN 5 MG TABLET PO SCH (09:49)
[2019-06-08] MEDS: METOPROLOL TARTRATE 50 MG TABLET PO SCH (09:49)
[2019-06-08] MEDS: FAMOTIDINE 20 MG TABLET PO SCH (09:49)
[2019-06-08] MEDS ORDERED: METHIMAZOLE 5 MG TABLET PO SCH (10:00)
[2019-06-08] MEDS ORDERED: (PENDING PHARMACY ID) (Iron [Iron] 65 MG) PO SCH (10:00)
[2019-06-08] MEDS ORDERED: FERROUS SULFATE 325 MG TABLET PO SCH (10:00)
[2019-06-08] MEDS ORDERED: DOCUSATE SODIUM 100 MG CAPSULE PO SCH (10:00)
[2019-06-08] MEDS ORDERED: CYANOCOBALAMIN (VITAMIN B-12) 1,000 MCG TABLET PO SCH (10:00)
[2019-06-08] MEDS ORDERED: FLUTICASONE/UMECLIDIN/VILANTER 100-62.5-25 MCG/DOSE IH SCH (10:00)
[2019-06-08 10:40] VITALS: BP 111/69
--- NOTE | 2019-06-09 17:04 | PDOC DISCHARGE SUMMARY ---
General - Admit/Disc Date/PCP Admission Date/Primary Care Provider: 06/07/19 16:15 STEVEN SO MD Discharge Date: 06/08/19 - Discharge Diagnosis (1) Dental abscess Is this a current diagnosis for this admission?: Yes (2) Infected dental caries Is this a current diagnosis for this admission?: Yes (3) COPD (chronic obstructive pulmonary disease) Is this a current diagnosis for this admission?: Yes (4) HTN (hypertension) Is this a current diagnosis for this admission?: Yes (5) Hyperthyroidism Is this a current diagnosis for this admission?: Yes (6) Atrial flutter with rapid ventricular response Is this a current diagnosis for this admission?: Yes - Additional Information Resuscitation Status: Full Code Discharge Diet: Cardiac Discharge Activity: Activity As Tolerated, Balance Activity w/Rest Prescriptions: Amox Tr/Potassium Clavulanate [Augmentin 875-125 mg Tablet] 1 tab PO BID 10 Days #20 tablet Home Medications: Acetaminophen with Codeine [Acetaminophen-Cod #4 Tablet] 1 each PO BIDP PRN 06/07/19 Albuterol Sulfate [Proair HFA Inhalation Aerosol 8.5 gm MDI] 2 puff IH Q4HP PRN 06/07/19 Apixaban [Eliquis 5 mg Tablet] 5 mg PO Q12 06/07/19 Cyanocobalamin (Vitamin B-12) [B-12] 1,000 mcg PO DAILY 06/07/19 Diclofenac Sodium [Voltaren] 100 gm TP QIDP PRN 06/07/19 Fluticasone/Umeclidin/Vilanter [Trelegy 100-62.5-25 Mcg Ellipta 14 Dose/Dpi] 1 puff IH DAILY 06/07/19 Gabapentin [Neurontin] 800 mg PO Q6 06/07/19 Guaifenesin [Mucinex] 1,200 mg PO BIDP PRN 06/07/19 Hydrocodone/Acetaminophen [[place] 10-325 mg Tablet] 1 tab PO QID 06/07/19 Iron 65 mg PO DAILY 06/07/19 Melatonin [Melatonin 5 mg Tablet] 5 mg PO HSP PRN 06/07/19 Methimazole [Tapazole 5 mg Tablet] 5 mg PO DAILY 06/07/19 Metoprolol Tartrate [Lopressor 50 mg Tablet] 50 mg PO Q12 06/07/19 Multivitamin [One-A-Day Essential] 1 each PO DAILY 06/07/19 [place]-3/Dha/Epa/Fish Oil [Fish Oil 500 mg Softgel] 1 each PO DAILY 06/07/19 Rosuvastatin Calcium [Crestor 10 mg Tablet] 10 mg PO DAILY 06/07/19 Turmeric/Turmeric Root Extract [Turmeric 500 mg Capsule] 1 each PO DAILY 06/07/19 Amox Tr/Potassium Clavulanate [Augmentin 875-125 mg Tablet] 1 tab PO BID 10 Days #20 tablet 06/08/19 History of Present Illness History of Present Illness: Admitting hospitalist's H&P: This is a 68-year-old male came into the emergency room this morning with right jaw pain. Going to the patient he has had this pain for 2 or 3 days now while here in the emergency room being worked up for his right jaw pain which turns out to be dental abscess, patient had episodes of tachycardia which appears to be atrial flutter. Patient has a history of atrial flutter in fact backing December of this year had ablation procedure by Dr. Acuna in [place] patient at that time also was diagnosed with thyroid toxicosis currently taking Tapazole 5 mg daily. Hospital Course Hospital Course: Patient was admitted for a periodontal abscess. He was started on penicillin. He did went into atrial flutter on presentation but he has a known paroxysmal A. fib and is on Eliquis. His heart rate was up to optimally controlled overnight. He was in sinus rhythm on day of discharge. He did have improvement of his dental pain. He says that his dentist has already referred him to an oral surgeon for a dental intervention but he has not made the appointment yet. He will be sent home on Augmentin. Discussed in length that patient needs to pursue his appointment with the oral surgeon and that the antibiotics can only do so much for his dental infection. He verbalized understanding and says that he will make that appointment with the mentioned specialist. Physical Exam Vital Signs: Temp Pulse Resp BP Pulse Ox 98.0 F 62 18 111/69 94 06/08/19 10:39 06/08/19 10:39 06/08/19 10:39 06/08/19 10:39 06/08/19 10:39 Intake & Output 06/07/19 06/08/19 06/09/19 06:59 06:59 06:59 Intake Total 2049 Output Total 275 Balance 1775 Weight 220 lb 14.451 oz General appearance: PRESENT: no acute distress, well-developed, well-nourished Head exam: PRESENT: atraumatic, normocephalic Eye exam: PRESENT: conjunctiva pink, EOMI, PERRLA. ABSENT: scleral icterus Ear exam: PRESENT: normal external ear exam Mouth exam: PRESENT: moist, tongue midline Teeth exam: PRESENT: dental caries, dental tenderness Neck exam: ABSENT: carotid bruit, JVD, lymphadenopathy, thyromegaly Respiratory exam: PRESENT: clear to auscultation kasi. ABSENT: rales, rhonchi, wheezes Cardiovascular exam: PRESENT: RRR. ABSENT: diastolic murmur, rubs, systolic murmur Pulses: PRESENT: normal dorsalis pedis pul GI/Abdominal exam: PRESENT: normal bowel sounds, soft. ABSENT: distended, guarding, mass, organolmegaly, rebound, tenderness Rectal exam: PRESENT: deferred Extremities exam: PRESENT: full ROM. ABSENT: calf tenderness, clubbing, pedal edema Neurological exam: PRESENT: alert, awake, oriented to person, oriented to place, oriented to time, oriented to situation, CN II-XII grossly intact. ABSENT: motor sensory deficit Results Laboratory Results: 06/07/19 12:38 06/07/19 12:38 06/07/19 15:50 Urine Color YELLOW Urine Appearance CLEAR Urine pH 6.0 Ur Specific Premier 1.012 Urine Protein NEGATIVE Urine Glucose (UA) NEGATIVE Urine Ketones NEGATIVE Urine Blood NEGATIVE Urine Nitrite NEGATIVE Ur Leukocyte Esterase NEGATIVE Urine WBC (Auto) 1 Urine RBC (Auto) 2 06/07/19 06/07/19 12:38 12:38 Creatine Kinase 276 H Troponin I < 0.012 Impressions: Head CT 06/07/19 12:11 IMPRESSION: Left sphenoid sinus disease with no acute intracranial imaging finding. EVIDENCE OF ACUTE STROKE: NO. Qualifiers - * PATIENT BEING DISCHARGED WITH ANY OF THE FOLLOWING DIAGNOSIS: No Acute Heart Failure - Is this a Heart Failure Patient?: No LVEF < 40%?: No- if no continue to question #3 3. Anticoagulant therapy for permanect/persistent/paraoxysmal Afib or Aflutter: N/A
== END 2019-06-08 10:55 | disposition home or self-care (01) | DRG 159 ==
LOC: ER 11:40 → EH 16:15 → 3W 17:07 → EH 17:16 → 3W 19:51
PROVIDERS: ADMIT Internal Medicine; ATTEND Internal Medicine
DX: K04.7 Periapical abscess without sinus (principal); J44.9 Chronic obstructive pulmonary disease, unspecified; I10 Essential (primary) hypertension; E05.90 Thyrotoxicosis, unspecified without thyrotoxic crisis or storm; I48.0 Paroxysmal atrial fibrillation; I95.9 Hypotension, unspecified; G62.9 Polyneuropathy, unspecified; E78.5 Hyperlipidemia, unspecified; G60.9 Hereditary and idiopathic neuropathy, unspecified; E78.00 Pure hypercholesterolemia, unspecified; Z79.899 Other long term (current) drug therapy; Z79.01 Long term (current) use of anticoagulants; Z79.891 Long term (current) use of opiate analgesic
CPT/HCPCS: 36415; 70450; 80053; 81001; 82550; 82962; 84439; 84443; 84481; 84484; 85025; 85610; 85730; 87040; 93005; 93010; 96361; 96365; 96375; 99291; J1885; J3490; J7030

== ENCOUNTER → 2019-06-18 | Outpatient (CLI) | payer MEDICARE, OTHER ==
[2019-06-18 12:22] LABS: FREE T4 (FREE THYROXINE) 0.92 ng/dL (0.78-2.19)
[2019-06-18 12:36] LABS: THYROID STIMULATING HORMONE 2.97 uIU/mL (0.47-4.68)
== END ==
LOC: OD 10:52
PROVIDERS: ATTEND Family Medicine
DX: E05.00 Thyrotoxicosis with diffuse goiter without thyrotoxic crisis or storm (principal)
CPT/HCPCS: 36415; 84439; 84443

== ENCOUNTER → 2019-07-19 | Outpatient (CLI) | payer MEDICARE, OTHER | LOC: OD 12:11 | PROVIDERS: ATTEND Family Medicine | DX: E05.00 Thyrotoxicosis with diffuse goiter without thyrotoxic crisis or storm (principal) | CPT/HCPCS: 36415; 84436; 84443 ==

== ENCOUNTER → 2019-07-20 | Outpatient (CLI) | payer MEDICARE, OTHER ==
--- NOTE | 2019-07-20 14:43 | RADIOLOGY REPORT (SQ) ---
EXAM DESCRIPTION: CT LUNG CANCER SCREENING COMPLETED DATE/TIME: 07/20/2019 1:23 pm REASON FOR STUDY: HX OF TOBACCO USE (Z87.891) Z87.891 PERSONAL HISTORY OF NICOTINE DEPENDENCE Has the patient had a Chest CT scan within the past year? No Was the patient offered tobacco cessation counseling? Yes Was the patient engaged in shared decision making for this test? Yes Does the patient have signs or symptoms of Lung Cancer? No Is the patient a smoker? Yes How many pack years? 50 How many years since quitting smoking? 16 days Patients age: 68 COMPARISON: None. TECHNIQUE: Low Dose CT scan performed of the chest without intravenous contrast for purposes of scre ening for lung cancer. Images reviewed with lung, soft tissue and bone windows. Reconstructed coron al and sagittal MPR images reviewed. All images stored on PACS. All CT scanners at this facility use dose modulation, iterative reconstruction, and/or weight based d osing when appropriate to reduce radiation dose to as low as reasonably achievable (ALARA). [facility]: Dose Right [facility]: CareDose [facility]: Dose Right [facility]: Teradose 4D [facility]: [employer] RADIATION DOSE: CT Rad equipment meets quality standard of care and radiation dose reduction techniq ues were employed. CTDIvol: NaN mGy. DLP: 0 mGy-cm. mGy. . LIMITATIONS: None FINDINGS: LUNGS AND PLEURA: No masses or nodules. No pleural effusions or calcifications. No pne umothorax. There is bandlike scarring in the periphery of the left lower lobe adjacent to the fissu re. HILAR AND MEDIASTINAL STRUCTURES: No identified masses. No abnormal nodes. HEART AND VASCULAR STRUCTURES: No aortic aneurysm. No pericardial effusion. No cardiac devices. CORONARY ARTERY CALCIFICATIONS: No significant calcifications. UPPER ABDOMEN, THYROID, BONES, OTHER SOFT TISSUES: No significant findings. IMPRESSION: NO SIGNIFICANT FINDING IN THE LUNGS ON NON-CONTRASTED CHEST CT. NO OTHER CLINICALLY SIGNIFICANT/POTENTIALLY CLINICALLY SIGNIFICANT FINDINGS LUNGRADS: LUNGRADS: 1 NEGATIVE. NO NODULES, OR DEFINITELY BENIGN NODULES MODIFIER: NONE RECOMMENDATION: Continue annual screening with LDCT in 12 months. COMMENT: CRITERIA: No lung nodules. Nodules with specific calcifications: Complete, central, popcorn, concentric rings and fat containin g nodules. TECHNICAL DOCUMENTATION: JOB ID: [id number] Quality ID # [id number]: Final reports with documentation of one or more dose reduction techniques (e.g., Au tomated exposure control, adjustment of the mA and/or kV according to patient size, use of iterative reconstruction technique) 2010 [facility] Radiology Reading location - IP/workstation name: [email or web address]
== END ==
LOC: RAD 12:56
PROVIDERS: ATTEND Internal Medicine Pulmonary Disease
DX: Z12.2 Encounter for screening for malignant neoplasm of respiratory organs (principal); Z09 Encounter for follow-up examination after completed treatment for conditions other than malignant neoplasm; Z87.891 Personal history of nicotine dependence
CPT/HCPCS: G0297

== ENCOUNTER → 2019-09-21 | Outpatient (CLI) | payer MEDICARE, OTHER | LOC: OD 10:25 | PROVIDERS: ATTEND Family Medicine | DX: E05.00 Thyrotoxicosis with diffuse goiter without thyrotoxic crisis or storm (principal) | CPT/HCPCS: 36415; 84436; 84443 ==

== ENCOUNTER → 2019-11-22 | Outpatient (CLI) | payer MEDICARE, OTHER ==
[2019-11-22 10:17] LABS: ABSOLUTE EOSINOPHILS # (AUTO) 0.2 10^3/uL (0.0-0.6); ABSOLUTE LYMPHOCYTES (AUTO) 1.6 10^3/uL (0.5-4.7); ABSOLUTE MONOCYTES (AUTO) 0.4 10^3/uL (0.1-1.4); BASOPHILS % (AUTO) 0.6 % (0-2); EOSINOPHILS % (AUTO) 3.1 % (0-6); HEMOGLOBIN 14.5 g/dL (13.5-17.0); LYMPHOCYTES % (AUTO) 30.5 % (13-45); MEAN CORPUSCULAR HEMOGLOBIN 31.5 pg (27.0-33.4); MEAN CORPUSCULAR HGB CONC 33.6 g/dL (32.0-36.0); MEAN CORPUSCULAR VOLUME 94 fl (80-97); MONOCYTES % (AUTO) 8.3 % (3-13); PLATELET COUNT 128 10^3/uL (150-450); RED BLOOD COUNT 4.59 10^6/uL (4.35-5.55); RED CELL DISTRIBUTION WIDTH 13.8 % (11.5-14.0); SEGMENTED NEUTROPHILS % (AUTO) 57.5 % (42-78); TOTAL CELLS COUNTED % (AUTO) 100 %; WHITE BLOOD COUNT 5.3 10^3/uL (4.0-10.5)
[2019-11-22 10:48] LABS: IRON 92.7 ug/dL (49-181)
[2019-11-22 11:15] LABS: FERRITIN 31.6 ng/mL (17.9-464.0)
== END ==
LOC: OD 09:25
PROVIDERS: ATTEND Family Medicine
DX: E53.8 Deficiency of other specified B group vitamins (principal); E05.00 Thyrotoxicosis with diffuse goiter without thyrotoxic crisis or storm; G62.9 Polyneuropathy, unspecified; Z13.21 Encounter for screening for nutritional disorder; Z86.2 Personal history of diseases of the blood and blood-forming organs and certain disorders involving the immune mechanism
CPT/HCPCS: 36415; 82306; 82607; 82728; 83036; 83540; 84436; 84443; 85025

== ENCOUNTER → 2019-12-29 | Outpatient (CLI) | payer MEDICARE, OTHER ==
[2019-12-29 13:10] LABS: FREE T3 3.92 pg/mL (2.77-5.27); FREE T4 (FREE THYROXINE) 0.91 ng/dL (0.78-2.19)
[2019-12-29 13:24] LABS: THYROID STIMULATING HORMONE 5.91 uIU/mL (0.47-4.68)
[2019-12-30 08:37] LABS: HEPATITIS C VIRUS AB <0.1 s/co ratio (0.0-0.9)
== END ==
LOC: OD 11:26
PROVIDERS: ATTEND Family Medicine
DX: Z11.59 Encounter for screening for other viral diseases (principal); E05.00 Thyrotoxicosis with diffuse goiter without thyrotoxic crisis or storm
CPT/HCPCS: 36415; 84439; 84443; 84481; 86803; 86804

== ENCOUNTER → 2020-02-16 | Outpatient (CLI) | payer MEDICARE, OTHER ==
[2020-02-16 12:12] LABS: FREE T3 3.74 pg/mL (2.77-5.27); FREE T4 (FREE THYROXINE) 1.06 ng/dL (0.78-2.19)
[2020-02-16 12:25] LABS: THYROID STIMULATING HORMONE 2.68 uIU/mL (0.47-4.68)
== END ==
LOC: OD 10:49
PROVIDERS: ATTEND Internal Medicine Endocrinology, Diabetes & Metabolism
DX: E05.00 Thyrotoxicosis with diffuse goiter without thyrotoxic crisis or storm (principal)
CPT/HCPCS: 36415; 84439; 84443; 84481

== ENCOUNTER → 2020-08-14 | Outpatient (CLI) | payer MEDICARE, OTHER ==
--- NOTE | 2020-08-14 13:32 | RADIOLOGY REPORT (SQ) ---
EXAM DESCRIPTION: CT LUNG CANCER SCREENING IMAGES COMPLETED DATE/TIME: 08/14/2020 10:30 am REASON FOR STUDY: PERSONAL HISTORY OF NICOTINE DEPENDENCE Z87.891 PERSONAL HISTORY OF NICOTINE DEPE NDENCE Has the patient had a Chest CT scan within the past year? N Was the patient offered tobacco cessation counseling? Y Was the patient engaged in shared decision making for this test? Y Does the patient have signs or symptoms of Lung Cancer? N Is the patient a smoker? Y How many pack years? 52 How many years since quitting smoking? NA Patients age: 70 COMPARISON: 07/20/2019 TECHNIQUE: Low Dose CT scan performed of the chest without intravenous contrast for purposes of scre ening for lung cancer. Images reviewed with lung, soft tissue and bone windows. Reconstructed coron al and sagittal MPR images reviewed. All images stored on PACS. All CT scanners at this facility use dose modulation, iterative reconstruction, and/or weight based d osing when appropriate to reduce radiation dose to as low as reasonably achievable (ALARA). [facility]: Dose Right [facility]: CareDose [facility]: Dose Right [facility]: Teradose 4D [facility]: [employer] RADIATION DOSE: CT Rad equipment meets quality standard of care and radiation dose reduction techniq ues were employed. CTDIvol: NaN mGy. DLP: 0 mGy-cm. mGy. . LIMITATIONS: No technical limitations. FINDINGS: LUNG NODULES: No discrete pulmonary nodules. Unchanged bandlike scarring in the peripher y of the left lingula adjacent to the fissure. REMAINING LUNGS AND PLEURA: No pleural effusions or calcifications. No pneumothorax. Left lingu lar band like scarring as above. HILAR AND MEDIASTINAL STRUCTURES: No identified masses. No abnormal nodes. HEART AND VASCULAR STRUCTURES: Normal heart size. No pericardial effusion. No cardiac devices. CORONARY ARTERY CALCIFICATIONS: Scattered coronary atherosclerosis. UPPER ABDOMEN, THYROID, BONES, OTHER SOFT TISSUES: No acute findings. Prior sternotomy. No suspicio us osseous lesions. Thoracolumbar spondylosis with unchanged mild compression deformity of the super ior endplate of T12, stable. IMPRESSION: BENIGN FINDINGS IN THE LUNGS. NO OTHER CLINICALLY SIGNIFICANT/POTENTIALLY CLINICALLY SIGNIFICANT FINDINGS LUNGRADS: LUNGRADS: 2 BENIGN APPEARANCE OR BEHAVIOR. NODULES WITH A VERY LOW LIKELIHOOD OF BECOMING A CLINICALLY ACTIVE CANCER DUE TO SIZE OR LACK OF GROWTH. MODIFIER: NONE. RECOMMENDATION: Continue annual screening with LDCT in 12 months. COMMENT: CRITERIA: Solid nodule(s): < 6 mm; new < 4 mm. Part solid nodule(s): < 6 mm total diameter on baseline screening. Non solid nodule(s) (GGN): < 20 mm OR ? 20 and unchanged or slowly growing. Category 3 or 4 nodules unchanged for ? 3 months. TECHNICAL DOCUMENTATION: JOB ID: [id number] Quality ID # [id number]: Final reports with documentation of one or more dose reduction techniques (e.g., Au tomated exposure control, adjustment of the mA and/or kV according to patient size, use of iterative reconstruction technique) 2010 [facility] [place] Radiology Reading location - IP/workstation name: [email or web address]
== END ==
LOC: RAD 10:01
PROVIDERS: ATTEND Registered Nurse
DX: Z87.891 Personal history of nicotine dependence (principal)
CPT/HCPCS: G0297

== ENCOUNTER → 2020-09-22 | Outpatient (CLI) | payer MEDICARE, OTHER ==
[2020-09-25 07:42] LABS: TESTOSTERONE FREE (DIRECT) 4.4 pg/mL (6.6-18.1)
== END ==
LOC: OD 15:11
PROVIDERS: ATTEND Family Medicine
DX: E05.00 Thyrotoxicosis with diffuse goiter without thyrotoxic crisis or storm (principal); R68.82 Decreased libido
CPT/HCPCS: 36415; 84402; 84403; 84436; 84443; 84480

== ENCOUNTER → 2020-10-04 | Outpatient (CLI) | payer MEDICARE, OTHER ==
[2020-10-04 08:31] LABS: ALBUMIN 3.9 g/dL (3.5-5.0); ALKALINE PHOSPHATASE 51 U/L (38-126); ASPARTATE AMINO TRANSFERASE 36 U/L (17-59); BILIRUBIN,DIRECT 0.2 mg/dL (0.0-0.4); BILIRUBIN,TOTAL 0.7 mg/dL (0.2-1.3); BLOOD UREA NITROGEN 10 mg/dL (7-20); CALCIUM 8.6 mg/dL (8.4-10.2); GLUCOSE 86 mg/dL (75-110); POTASSIUM 4.5 mmol/L (3.6-5.0); TOTAL PROTEIN 6.4 g/dL (6.3-8.2)
[2020-10-04 08:36] LABS: ANION GAP 5 (5-19); CARBON DIOXIDE 38 mmol/L (22-30); CHLORIDE 96 mmol/L (98-107)
[2020-10-04 08:45] LABS: FREE T3 4.41 pg/mL (2.77-5.27); FREE T4 (FREE THYROXINE) 1.1 ng/dL (0.78-2.19)
[2020-10-04 09:01] LABS: THYROID STIMULATING HORMONE 4.05 uIU/mL (0.47-4.68)
== END ==
LOC: OD 07:20
PROVIDERS: ATTEND Student in an Organized Health Care Education/Training Program
DX: E05.00 Thyrotoxicosis with diffuse goiter without thyrotoxic crisis or storm (principal); R68.82 Decreased libido
CPT/HCPCS: 36415; 80053; 84402; 84403; 84439; 84443; 84481

== ENCOUNTER → 2020-11-17 | Outpatient (CLI) | payer MEDICARE, OTHER ==
[2020-11-20 14:40] LABS: TESTOSTERONE FREE (DIRECT) 3.3 pg/mL (6.6-18.1)
== END ==
LOC: OD 14:35
PROVIDERS: ATTEND Family Medicine
DX: R68.82 Decreased libido (principal)
CPT/HCPCS: 36415; 84402; 84403